=== PATIENT | female | born 1970 | race Caucasian/White ===

== ENCOUNTER 2016-05-27 20:45 | Emergency (ER) | payer BC, OTHER ==
[2016-05-27] MEDS ORDERED: Acetaminophen/HYDROcodone 325-10 MG Tab PO ONE (21:05)
[2016-05-27] MEDS ORDERED: Lidocaine 2% with EPINEPHrine 1:200,000 20 ML SDV ONE (21:31)
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
[2016-05-27] MEDS ORDERED: Bacitracin/Neomycin/Polymyxin B Oint 0.9 GM U/D Packet ONE (22:14)
[2016-05-27] MEDS ORDERED: Diphtheria,Pertussis(Acell),Tetanus Vaccine 0.5 ML SDV IM ONE (22:49)
[2016-05-27 23:27] VITALS: BP 140/85
== END 2016-05-27 23:40 | disposition home or self-care (01) ==
LOC: KA.ED 20:45
DX: S81.011A Laceration without foreign body, right knee, initial encounter (principal); V19.9XXA Pedal cyclist (driver) (passenger) injured in unspecified traffic accident, initial encounter
CPT/HCPCS: 12002; 73560; 99283; A9270

== ENCOUNTER 2017-04-02 10:40 | Inpatient (IN) | payer BC ==
[2017-04-02] MEDS: Ondansetron 4 MG/2 ML SDV IVPUSH PRN (11:21)
[2017-04-02] MEDS: Morphine 2 MG/ML Syringe IV PRN ×3 (11:23→20:26)
[2017-04-02] MEDS ORDERED: cefTRIAXone 1 GM in Sodium Chloride 0.9% 50 ML IV SCH (11:30)
[2017-04-02] MEDS ORDERED: Iopamidol 612 MG/ML 75 ML Bottle IV ONE (12:54)
[2017-04-02] MEDS ORDERED: Sodium Chloride 0.9% 50 ML SDV FLUSH SCH (13:00)
[2017-04-02] MEDS: cefTRIAXone 1 GM Vial IVPUSH SCH (13:28)
[2017-04-02] MEDS: Dextrose 5%-0.45% NaCl 1,000 ML IV SCH ×2 (13:29→22:21)
[2017-04-02] MEDS ORDERED: Albuterol HFA 18 Gm Inhaler INH PRN (16:42)
[2017-04-03 08:00] LABS: CHLORIDE,CL 105 mmol/L (98-115); SODIUM,NA 140 mmol/L (136-145)
[2017-04-03] MEDS: Dextrose 5%-0.45% NaCl 1,000 ML IV SCH (08:30)
[2017-04-03] MEDS: Morphine 2 MG/ML Syringe IV PRN ×3 (10:22→18:01)
[2017-04-03] MEDS: cefTRIAXone 1 GM Vial IVPUSH SCH (10:32)
--- NOTE | 2017-04-03 11:01 | PN ---
04/03/2017 PATIENT NAME: LASHAY STRANGE CHIEF COMPLAINT: Feels overall better. Pain is subsiding in her right upper abdominal quadrant, although I do not have the documentation from her admission. HISTORY: The patient is 46-year-old who started having some upper right-sided abdominal pain in the evening after she had eaten. Abdominal CT did demonstrate a stone in the neck of the gallbladder consistent with cholecystolithiasis. She also had white count elevation with neutrophilia. She was admitted for IV fluids, pain control, and bowel rest. LABORATORY DATA: Labs today, white count much improved 8.7. Neutrophilia is now improved to 66.3. Sodium, potassium, BUN, and creatinine normal. Glucose 163. Amylase and lipase at [facility] were normal. Calcium, AST, ALT, and alkaline phosphatase normal. Albumin 2.94. PHYSICAL EXAMINATION: VITAL SIGNS: Temperature 98.6, T-max while in the hospital 98.9, blood pressure 131/76, heart rate 70, respiratory rate 18, O2 saturation 97% on room air. Intake and output, she has fluids running saline at 100 mL an hour. Total intake 1651, output 1200. Positive balance of 451. GENERAL: The patient is alert and oriented; much less pain, if any. HEENT: No sore throat. HEART: No chest pain. CARDIOVASCULAR: Regular rate and rhythm. ABDOMEN: Negative Hay sign. Bowel tones decreased. EXTREMITIES: No pitting edema. No tenderness to the right upper quadrant. IMPRESSION AND PLAN: 1. Acute cholelithiasis, stone in the neck of gallbladder, uncomplicated. Negative liver enzymes. No signs and symptoms of cholangitis or pancreatitis. Continue with Rocephin. May advance diet, is eating with clears right now. Ice chips. 2. Dehydration. Advance fluids to 125 mL/h. 3. Fatty liver disease. 4. Obesity, contributory. OVERALL PLAN: Continue IV antibiotics. Increase her fluids. She can have ice chips now. May advance to clear liquids this evening. Pain control measures. Discussion about followup and possible gallbladder removal. The patient will remain in acute care status today. /[id number]/MODL
[2017-04-03] MEDS ORDERED: Sodium Chloride 0.9% 1,000 ML IV SCH (11:45)
[2017-04-03] MEDS ORDERED: Dextrose 5%-0.45% NaCl 1,000 ML IV SCH (11:45)
[2017-04-03] MEDS: Ondansetron 4 MG/2 ML SDV IVPUSH PRN ×2 (13:32→17:58)
[2017-04-03] MEDS ORDERED: Pantoprazole 40 MG in Sodium Chloride 0.9% 100 ML IV ONE (13:54)
[2017-04-03] MEDS ORDERED: Morphine 4 MG/ML Syringe IVPUSH ONE (13:55)
[2017-04-03] MEDS ORDERED: Pantoprazole 40 MG Vial ONE (14:00)
[2017-04-03] MEDS ORDERED: Pantoprazole 40 MG Vial IVPUSH ONE (14:02)
[2017-04-03] MEDS: Sodium Chloride 0.9% 1,000 ML IV SCH (17:59)
[2017-04-03] MEDS: Pregabalin 25 MG Cap PO SCH (21:02)
[2017-04-04] MEDS: Sodium Chloride 0.9% 1,000 ML IV SCH (04:17)
[2017-04-04] MEDS ORDERED: Dextrose 5%-0.45% NaCl 1,000 ML IV SCH (08:45)
[2017-04-04] MEDS: Ondansetron 4 MG/2 ML SDV IVPUSH PRN ×2 (08:53→18:07)
[2017-04-04] MEDS: Ketorolac 30 MG/ML SDV IVPUSH SCH ×3 (08:55→20:41)
[2017-04-04] MEDS: Pregabalin 25 MG Cap PO SCH ×2 (08:57→20:40)
[2017-04-04 09:33] LABS: CHLORIDE,CL 107 mmol/L (98-115); SODIUM,NA 141 mmol/L (136-145)
[2017-04-04] MEDS: cefTRIAXone 1 GM Vial IVPUSH SCH (11:17)
--- NOTE | 2017-04-04 12:40 | PN ---
04/04/2017 PATIENT NAME: LASHAY STRANGE Update, the patient is doing well now. Yesterday afternoon, she did receive a meal tray at noon despite orders contrary to that, and she started having some severe abdominal pain. Morphine was increased. Zofran was given. Update this morning, she does feel although sore in her right upper quadrant, she has had no more abdominal pain. Fluids were given yesterday due to dehydration. However, she is now improving and becoming much more euvolemic. Lyrica was added for pain control measures. HISTORY: This 46-year-old obese female was admitted due to right upper abdominal pain in the evening after she had eaten. Abdominal CT demonstrated a stone in the neck of the gallbladder consistent with cholecystolithiasis without any acute cholecystitis. She did have an elevated white count with neutrophilia, which is now normal. She was admitted for IV fluids, pain control, and bowel rest. Attempts to advance diet so far have been precarious. We will see how she does. PHYSICAL EXAMINATION: VITAL SIGNS: Her temperature max past 24 hours was 99.4, right now she is 98.5; blood pressure 137/90; O2 sats 99% on room air; heart rate 73. GENERAL: The patient is alert and oriented. No pain at this time other than some mild soreness of right upper quadrant. Bowel tones are low. CV: Regular rate and rhythm. LUNGS: Clear to auscultation. LABORATORY DATA: White count shifting back to normal. White count now 8.7. Neutrophilia now normal at 66.3. Sodium, potassium, BUN, and creatinine are normal. Calcium, AST, ALT, alkaline phosphatase are all normal. She did have a normal lipase and amylase in the clinic. Microbiology reports none. IMPRESSION/PLAN: 1. Acute cholelithiasis, stone in the neck of the gallbladder, appears uncomplicated. Negative liver enzymes. No signs of complications. At this time, no cholangitis or pancreatitis. We will continue with Rocephin. We will attempt to advance diet today. 2. Dehydration becoming more euvolemic. Change fluids to D5 and half-normal saline, reduced rate. 3. Fatty liver disease. 4. Obesity, contributory. Long discussion with the patient and patient's family members. The patient's family members are desiring sooner gallbladder removal if indicated. We will discuss this more with surgical team. At this time, add ketorolac, try to advance diet. Have her move around in the halls today. Monitor for any ongoing pain, likely could be discharged tomorrow. Continue with low-fat diet on outpatient therapy. /[id number]/MODL
[2017-04-05] MEDS ORDERED: Ondansetron 4 MG Tab.DIS PO PRN (00:29)
[2017-04-05] MEDS ORDERED: Ketorolac 10 MG Tab PO SCH (04:00)
[2017-04-05 05:58] VITALS: BP 115/77
[2017-04-05] MEDS: Morphine 2 MG/ML Syringe IM SCH ×2 (06:01→06:08)
[2017-04-05] MEDS ORDERED: Morphine 2 MG/ML Syringe IM PRN (06:13)
[2017-04-05] MEDS: Pregabalin 25 MG Cap PO SCH (09:43)
--- NOTE | 2017-04-05 11:08 | DISCH ---
The patient was admitted in inpatient on 04/02, discharged from inpatient today. FINAL DIAGNOSES: 1. Cholecystolithiasis with stone in neck of gallbladder. 2. Fatty liver disease. 3. Obesity. BRIEF HISTORY: A 46-year-old obese female, admitted due to right upper abdominal pain, quite severe in the evening after she had eaten. An abdominal CT demonstrated a stone in the neck of the gallbladder consistent with cholecystolithiasis without any acute cholecystitis. She did have an elevated white count around 16, 17,000 with neutrophilia, which is now normal. She was admitted basically for IV fluids, bowel rest, pain control measures. COMPLICATIONS: No complications in the hospital other than having to slow down on advancing diet. HOSPITAL COURSE: Went fairly well. She never became hemodynamically unstable. Temperature max 98.6. She was significantly dehydrated on admission. Fluid bolus and challenge were given. She did have a mild headache; however, she quickly became euvolemic. Her headache went away. She was given Rocephin 1 g every 24 hours. Attempts to advance her diet were slightly unsuccessful. The patient did receive an early clear liquid diet and the patient did have some more nausea and pain. She became n.p.o. after that. Subsequent measures to advance diet up to full liquids were very good. She was pain free within 24 hours upon discharge. She was ambulatory. She felt much better. She had no fever. Electrolytes were all monitored. They were all within normal limits. AST and ALT, normal. She did have a normal amylase and lipase at the [facility]. White count 9.6 on discharge; however, still had some residual neutrophilia. She will be placed on antibiotics upon discharge. Pain control measures with Toradol, Lyrica along with morphine were successful. PHYSICAL EXAM ON DISCHARGE: ABDOMEN: Negative Hay sign. Good bowel tones. LUNGS: Clear to auscultation. CV: Regular rate and rhythm. VITAL SIGNS: Blood pressure 115/77, temperature 97.7, heart rate 70, O2 sats 97% on room air. INTEGUMENTARY: Does have some bruising for previous IV sticks and needle. Venipuncture draws on her right arm. MEDICATIONS: Amoxicillin 500 mg p.o. b.i.d. x7 days, ketorolac 10 mg p.o. q.6 hours p.r.n. limited dosing, Lyrica 50 mg p.o. b.i.d. #30, Dilaudid 2 mg p.o. q.4 hours p.r.n. #20 for severe pain. The patient can continue on all other home medications. DISPOSITION: The patient will be discharged from the hospital. She will follow up with surgeon, Dr. Annie Townsend this afternoon. She is to be on a strict no fat diet, handout was given to her. Report any increase in pain, fever, nausea, or vomiting. Long discussion to patient and the patient's mother regarding outcomes and possible surgical removal in the future. This will be determined by a surgical consultation today. /[id number]/MODL
[2017-04-05] MEDS ORDERED: cefTRIAXone 1 GM Vial IM ONE (11:30)
== END 2017-04-05 11:17 | disposition home or self-care (01) ==
LOC: KA.MS 10:40
PROVIDERS: ADMIT Physician Assistant Medical; ATTEND Family Medicine
DX: K80.20 Calculus of gallbladder without cholecystitis without obstruction (principal); K76.0 Fatty (change of) liver, not elsewhere classified; E66.9 Obesity, unspecified; Z68.41 Body mass index [BMI] 40.0-44.9, adult; E86.0 Dehydration; Z79.899 Other long term (current) drug therapy; F41.8 Other specified anxiety disorders; Z91.040 Latex allergy status; Z88.8 Allergy status to other drugs, medicaments and biological substances
CPT/HCPCS: 36415; 74177; 80048; 80053; 85025; A9270-GY; C9113; J0696; J1885; J2270; J2405; J7030; J7042; Q9967

== ENCOUNTER 2017-04-09 13:57 | Inpatient (IN) | payer BC ==
[2017-04-09] MEDS ORDERED: Sodium Chloride 0.9% 5 ML Syringe FLUSH PRN (14:12)
[2017-04-09] MEDS: Sodium Chloride 0.9% 1,000 ML IV SCH (14:35)
[2017-04-09] MEDS: Ketorolac 30 MG/ML SDV IVPUSH PRN (15:24)
[2017-04-09] MEDS: Ondansetron 4 MG/2 ML SDV IVPUSH PRN (15:26)
[2017-04-09] MEDS ORDERED: Albuterol HFA 18 Gm Inhaler INH PRN (20:05)
[2017-04-09] MEDS ORDERED: cefTRIAXone 1 GM Vial IVPUSH ONE (20:40)
[2017-04-09] MEDS ORDERED: Amoxicillin 875 MG Tab PO SCH (21:00)
[2017-04-09] MEDS ORDERED: Pregabalin 25 MG Cap PO SCH (21:00)
[2017-04-09] MEDS: Morphine 2 MG/ML Syringe IVPUSH PRN (21:49)
[2017-04-10] MEDS: Ketorolac 30 MG/ML SDV IVPUSH PRN ×4 (00:56→21:37)
[2017-04-10] MEDS: Sodium Chloride 0.9% 1,000 ML IV SCH (01:50)
[2017-04-10] MEDS: Morphine 2 MG/ML Syringe IVPUSH PRN ×3 (02:34→18:15)
[2017-04-10] MEDS: Ondansetron 4 MG/2 ML SDV IVPUSH PRN ×2 (02:34→14:17)
[2017-04-10] MEDS ORDERED: Phenol 1.4% Oral Spray 177 ML Bottle ONE (04:57)
[2017-04-10] MEDS ORDERED: Phenol 1.4% Oral Spray 177 ML Bottle MUCMEM PRN (05:42)
[2017-04-10] MEDS ORDERED: Sodium Chloride 0.9% 1,000 ML IV ONE (09:11)
[2017-04-10] MEDS ORDERED: Lactated Ringers 1,000 ML IV SCH (09:30)
[2017-04-10] MEDS ORDERED: Propofol 200 MG/20 ML SDV ONE (10:35)
[2017-04-10] MEDS ORDERED: fentaNYL 250 MCG/5 ML SDV ONE (10:35)
[2017-04-10] MEDS ORDERED: Midazolam 1 MG/ML 2 ML SDV ONE (10:35)
[2017-04-10] MEDS ORDERED: ceFAZolin 1 GM Vial ONE ×3 (10:35→12:10)
[2017-04-10] MEDS ORDERED: Dexamethasone 4 MG/ML SDV ONE (10:36)
[2017-04-10 10:46] LABS: CHLORIDE,CL 108 mmol/L (98-115); SODIUM,NA 142 mmol/L (136-145)
[2017-04-10] MEDS ORDERED: Lidocaine 1% with EPINEPHrine 1:100,000 20 ML MDV ONE ×2 (11:05→13:40)
[2017-04-10] MEDS ORDERED: Lactated Ringers 1,000 ML ONE ×2 (11:08→11:42)
[2017-04-10] MEDS ORDERED: Propofol 200 MG/20 ML SDV IV ONE (11:20)
[2017-04-10] MEDS ORDERED: Lactated Ringers 1,000 ML IV ONE (11:20)
[2017-04-10] MEDS ORDERED: Neostigmine Methylsulfate 10 MG/10 ML MDV IV ONE (11:20)
[2017-04-10] MEDS ORDERED: ceFAZolin 1 GM Vial IV ONE (11:20)
[2017-04-10] MEDS ORDERED: Ondansetron 4 MG/2 ML SDV IV ONE (11:20)
[2017-04-10] MEDS ORDERED: Rocuronium 50 MG/5 ML Vial IV ONE (11:20)
[2017-04-10] MEDS ORDERED: Midazolam 1 MG/ML 2 ML SDV IV ONE (11:20)
[2017-04-10] MEDS ORDERED: Dexamethasone 4 MG/ML SDV IV ONE (11:20)
[2017-04-10] MEDS ORDERED: Glycopyrrolate 0.2 MG/ML 5 ML MDV IV ONE (11:20)
[2017-04-10] MEDS ORDERED: fentaNYL 250 MCG/5 ML SDV IV ONE (11:20)
[2017-04-10] MEDS ORDERED: Succinylcholine 200 MG/10 ML MDV IV ONE (11:20)
[2017-04-10] MEDS ORDERED: Sodium Chloride 0.9% 20 ML SDV ONE (12:14)
[2017-04-10] MEDS ORDERED: Lidocaine 1% with EPINEPHrine 1:100,000 20 ML MDV INFILT ONE ×2 (12:15)
[2017-04-10] MEDS ORDERED: EPINEPHrine 1:10,000 1 MG/10 ML Syringe ONE (12:19)
[2017-04-10] MEDS ORDERED: Morphine 4 MG/ML Syringe IVPUSH PRN (13:46)
[2017-04-10] MEDS ORDERED: Ondansetron 4 MG/2 ML SDV IVPUSH PRN (13:47)
[2017-04-10] MEDS ORDERED: Morphine 2 MG/ML Syringe IVPUSH PRN (13:47)
[2017-04-10] MEDS ORDERED: fentaNYL 100 MCG/2 ML SDV IVPUSH PRN (13:47)
--- NOTE | 2017-04-10 14:04 | PCM.PRNOTE ---
- Free Text/Narrative Note: INFORMED CONSENT: This patient is here today because of chronic cholecystitis and cholelithiasis. The operative procedure is laparoscopic cholecystectomy. The operative procedure and risks were discussed including all possible complications including infection, pain, bleeding, bile duct injury, internal organ injury, conversion to open procedure, reoperation, PE, . Anesthetic complications were handled by [employer]. The patient understands well and wishes to proceed. OPERATION PERFORMED: Laparoscopic cholecystectomy. PROCEDURE: The patient was kept in the supine position and a satisfactory general anesthetic was administered via endotracheal tube. The abdomen was thoroughly prepped and draped in the usual fashion. The supraumbilical fold was infiltrated with 1 mL of Marcaine 0.5% and a curvilinear incision was made. The incision was deepened through the subcutaneous tissue until we came down upon the fascial layer. We then held the fascial layer with two Jose clamps and then introduced a Verre's needle directly into the abdominal cavity. The position of the needle was ascertained by the aspiration of a small quantity of air, free flow of saline, negative aspiration of blood. We then instilled CO2 gas into the abdominal cavity and developed an abdominal pressure of approximately 15 mm/Hg. At this point we removed the Verre's needle and reintroduced it over a sheath. This was followed by a 5/12.5 trocar and a camera. Inspection revealed a chronically inflamed gallbladder with some omental adhesions. The omental pad was quite thick. The rest of the abdominal contents were normal to visualization. Two 5 mm trocars were placed in the right hypochondriac region, one in the right midclavicular and the second on the anterior clavicle line and a third 11.5 trocar was inserted in the subxiphoid position under direct vision. The patient was then kept in the reverse Trendelenburg position with a slight tilt to the left side. The two ratchets were placed one on the fundus and one at the neck of the gallbladder. Extensive omental tissue was seen to be adherent to the gallbladder. Carefully the omentum was dissected from the gallbladder using hook and cautery. Dissection was begun at the neck of the gallbladder and the fat in this area was quite immense. We carefully dissected out the cystic artery and cystic duct separately and encircled both structures at approximately 1 to 1-1/2 cm. We then dissected the gallbladder from the cystic plate to about one third [address] the way on the liver. The fat in the hepatic biliary triangle was cleared. At the end of this dissection, there were only 2 structures going to the bladder. One was the cystic duct and other one was the cystic artery. We ligated each structure separately using endo clips. When ligating the cystic duct we made sure not to encroach upon the common duct in any way. We then used a hook cautery and gently dissected the gallbladder off its bed. The base gallbladder fossa was gently cauterized for additional hemostasis. The gallbladder was retrieved through the umbilical port. The melody hepatis was thoroughly irrigated with normal saline, most of which was aspirated out. The abdomen was then slowly deflated and prior to removal of the last trocar we completely deflated the abdomen. The trocar sites were washed with Betadine solution and the fascial layer was closed with 0 Polysorb and the skin was closed using 4.0 Polysorb in a subcuticular fashion. We then instilled approximately 20 mL of Marcaine 0.5% with epinephrine between the four sites. Sterile pressure dressings were applied. The patient tolerated the procedure well. There were no operative complications. Sponge, needle, and instrument count were correct. Blood loss was negligeable.
[2017-04-10] MEDS ORDERED: Morphine 10 MG/ML Syringe ONE (14:27)
[2017-04-10] MEDS ORDERED: LORazepam 2 MG/ML SDV IVPUSH PRN (15:37)
[2017-04-10] MEDS: Lactated Ringers 1,000 ML IV SCH (17:08)
[2017-04-10] MEDS: Pregabalin 25 MG Cap PO SCH (20:09)
[2017-04-11] MEDS: Morphine 2 MG/ML Syringe IVPUSH PRN (02:26)
[2017-04-11] MEDS: Lactated Ringers 1,000 ML IV SCH (02:29)
[2017-04-11] MEDS: Ketorolac 30 MG/ML SDV IVPUSH PRN ×3 (03:07→15:26)
[2017-04-11] MEDS: Pregabalin 25 MG Cap PO SCH (09:07)
--- NOTE | 2017-04-11 09:15 | PN ---
04/10/2017 PATIENT NAME: LASHAY STRANGE CHIEF COMPLAINT: Overall does feel better. However, she did have a nasogastric tube last night that she did complain of that was difficult for them to put it in. It was painful. However, she did receive morphine and it did alleviate the pain somewhat. She had very little output throughout the night on nasogastric tube. She did have some abdominal distention, which is much improved. BRIEF HISTORY: This 46-year-old female with acute choledocholithiasis. She was recently admitted and then subsequently discharged from the hospital due to choledocholithiasis. She had seen a surgeon on followup and was scheduled for surgery in an approximately 3-4 weeks. However, early upon discharge she began to have some increased abdominal pain despite low fat or no fat diet and with some abdominal distention and so she was subsequently readmitted to the hospital and placed on the surgery schedule for possible laparoscopic cholecystectomy. LABS: She did have minimal elevation of her LFTs at the [facility]. Those are likely to be repeated. She had negative HCG. White count was negative. PHYSICAL EXAMINATION: VITAL SIGNS: Temperature 99.1, O2 sats 96% on room air, blood pressure 120/74. ABDOMEN: She does have good bowel tones. Abdomen is much softer now. NG tube is placed. ECG negative. The patient has been n.p.o. since admission for pending possible surgery. IMPRESSION AND PLAN: choledocholithiasis. The patient is prepped to meet with surgeon for possible laparoscopic cholecystectomy at [facility]. Keep ongoing nasal gastric tube. The patient is n.p.o. ECG is negative. Ceftriaxone 1 g IV push was administered last night. The patient had been on amoxicillin b.i.d. prior to this. Currently has normal saline running at 90 mL an hour. Morphine, Zofran p.r.n. Hepatitis panel will be ordered this morning along with comprehensive metabolic panel. /[id number]/MODL MTDD
[2017-04-11] MEDS ORDERED: Bisacodyl 10 MG Supp RECTAL SCH (11:30)
[2017-04-11 15:22] VITALS: BP 131/75
--- NOTE | 2017-04-18 11:17 | PCM.DCSUM1 ---
Discharge Summary - Discharge Data Discharge Date: 04/11/17 Discharge Disposition: Home, Self-Care 01 Condition: Good - Patient Summary/Data Complications: No complications. Surgery went well patient progressed well. Hospital Course: Issues hospital course went as expected. She was ambulatory after surgery, she tolerated a slowly advancing diet. Pain was controlled with medication. Dressings were clean dry and intact, abdominal distention subsided. Discontinued antibiotics. - Patient Instructions Diet, Other: See detailed instructions Fluid Restriction: 2000 mL Activity: As Tolerated, Cough & Deep Breathe, No Strenuous Activities, Rest and Relax Today Driving: Do Not Drive Showering/Bathing: May Shower Wound/Incision Care: Keep Operative Site/Wound Site Clean and Dry Notify Provider of: Fever, Increased Pain, Nausea and/or Vomiting Other/Special Instructions: Report yellowing of skin or eyes. Dietary: You can slowly start advancing your diet. Add foods back into your diet very slowly , but the first few days stick with clear liquids, broth, and gelatin. After that gradually add more solid foods back into your diet. Avoid high fat fried foods along with gas causing foods, avoid foods with strong odors, eat small but frequent meals. Best to stick with a low-fat diet overall. Some high fat foods includes polish fries, milk, pizza, butter, creams, chocolates, below-knee , sausage, ground beef, ice cream and cheese. Just read your labels anything more than 30% of your daily intake should not be from fat foods. Be very careful regarding gas-containing foods should be very slowly incorporated into your diet over the next few weeks including whole-grain bread, seeds, cauliflower and cabbage and cereals. - Discharge Plan Prescriptions/Med Rec: Hydrocodone/Acetaminophen [Hydrocodon-Acetaminophen 5-325] 1 - 2 each PO Q6HR PRN #30 tablet PRN Reason: moderate pain Acetaminophen [Tylenol] 650 mg PO Q4H PRN #60 cup PRN Reason: Pain Sennosides/Docusate Sodium [Senna S Tablet] 1 each PO DAILY PRN #10 tablet PRN Reason: Constipation Home Medications: Home Meds Albuterol [Ventolin HFA] 1 puff INH Q4H PRN 04/02/17 [History] Escitalopram [Lexapro] 10 mg PO DAILY 04/02/17 [History] Fexofenadine/Pseudoephedrine [Kizzy-D 24 Hour Tablet] 1 tab PO ASDIRECTED [History] Ibuprofen 800 mg PO Q4H PRN 04/02/17 [History] Acetaminophen [Tylenol] 650 mg PO Q4H PRN #60 cup 04/11/17 [Rx] Hydrocodone/Acetaminophen [Hydrocodon-Acetaminophen 5-325] 1 - 2 each PO Q6HR PRN #30 tablet 04/11/17 [Rx] Sennosides/Docusate Sodium [Senna S Tablet] 1 each PO DAILY PRN #10 tablet 04/11 [Rx] Referrals: Rodrigo Palma, [employer]AD [Nurse Practitioner] - (Midweek next week) - Discharge Summary/Plan Comment DC Time >30 min.: No Discharge Summary/Plan Comment: Final Diagnosis Laparoscopic cholecystectomy - Patient Data Vitals - Most Recent: Last Vital Signs Temp 97.9 F 04/11/17 15:00 Pulse 87 04/11/17 15:00 Resp 18 04/11/17 15:00 BP 131/75 04/11/17 15:00 Pulse Ox 97 04/11/17 15:00 Weight - Most Recent: 232 lb 8 oz Med Orders - Current: Current Medications Discontinued Medications Albuterol (Ventolin Hfa) 0 gm INH Q4H PRN PRN Reason: Cough Amoxicillin (Amoxil) 875 mg PO BID [facility] Stop: 04/09/17 21:01 Bisacodyl (Dulcolax) 10 mg RECTAL ONETIME [facility] Last Admin: 04/11/17 11:45 Dose: 10 mg Cefazolin Sodium (Ancef) Confirm Administered Dose 1 gm .ROUTE .STK-MED ONE Stop: 04/10/17 10:36 Last Admin: 04/10/17 15:44 Dose: Not Given Cefazolin Sodium (Ancef) Confirm Administered Dose 1 gm .ROUTE .STK-MED ONE Stop: 04/10/17 11:08 Last Admin: 04/10/17 15:43 Dose: Not Given Cefazolin Sodium (Ancef) 1 gm .XX .STK-MED ONE Stop: 04/10/17 12:11 Last Admin: 04/10/17 12:10 Dose: 1 gm Cefazolin Sodium (Ancef) 1 gm IV .STK-MED ONE Stop: 04/10/17 11:21 Ceftriaxone Sodium (Rocephin) 1 gm IVPUSH ONETIME ONE Stop: 04/09/17 20:41 Last Admin: 04/09/17 20:59 Dose: 1 gm Dexamethasone (Dexamethasone) Confirm Administered Dose 4 mg .ROUTE .STK-MED ONE Stop: 04/10/17 10:37 Last Admin: 04/10/17 15:43 Dose: Not Given Dexamethasone (Dexamethasone) 4 mg IV .STK-MED ONE Stop: 04/10/17 11:21 Epinephrine HCl (Epinephrine 1:10,000) Confirm Administered Dose 1 mg .ROUTE .STK-MED ONE Stop: 04/10/17 12:20 Last Admin: 04/10/17 15:43 Dose: Not Given Fentanyl (Sublimaze) Confirm Administered Dose 250 mcg .ROUTE .STK-MED ONE Stop: 04/10/17 10:36 Last Admin: 04/10/17 15:43 Dose: Not Given Fentanyl (Sublimaze) 50 mcg IVPUSH Q5M PRN PRN Reason: Pain Stop: 04/10/17 15:00 Fentanyl (Sublimaze) 250 mcg IV .STK-MED ONE Stop: 04/10/17 11:21 Glycopyrrolate (Robinul) 0.6 mg IV .STK-MED ONE Stop: 04/10/17 11:21 Sodium Chloride (Normal Saline) 1,000 mls [facility] 90 [facility] Admin: 04/10/17 01:50 Dose: 90 mls/hr Lactated Ringer's (Ringers, Lactated) 1,000 mls @ 50 mls/hr IV ASDIRECTED [facility] Last Admin: 04/10/17 10:50 Dose: 50 mls/hr Sodium Chloride (Normal Saline) 1,000 mls @ 999 mls/hr IV .BOLUS ONE Stop: 04/10/17 10:11 Last Admin: 04/10/17 09:20 Dose: 999 mls/hr Lactated Ringer's (Ringers, Lactated) Confirm Administered Dose 1,000 mls @ as directed .ROUTE .STK-MED ONE Stop: 04/10/17 11:09 Last Admin: 04/10/17 15:43 Dose: Not Given Lactated Ringer's (Ringers, Lactated) Confirm Administered Dose 1,000 mls @ as directed .ROUTE .STK-MED ONE Stop: 04/10/17 11:43 Last Admin: 04/10/17 15:43 Dose: Not Given Lactated Ringer's (Ringers, Lactated) 1,000 mls @ 100 mls/hr IV ASDIRECTED [facility] Last Admin: 04/11/17 02:29 Dose: 100 mls/hr Lactated Ringer's (Ringers, Lactated) 1,000 mls @ as directed IV .STK-MED ONE Stop: 04/10/17 11:21 Ketorolac Tromethamine (Toradol) 30 mg IVPUSH Q6H PRN PRN Reason: Pain Stop: 04/14/17 15:06 Last Admin: 04/11/17 15:26 Dose: 30 mg Lactated Ringer's (Ringers, Lactated) 1,000 ml IRR .STK-MED ONE Stop: 04/10/17 12:10 Last Admin: 04/10/17 12:09 Dose: 1,000 ml Lidocaine/Epinephrine (Xylocaine 1% With Epinephrine 1:100,000) Confirm Administered Dose 20 ml .ROUTE .STK-MED ONE Stop: 04/10/17 11:06 Last Admin: 04/10/17 15:43 Dose: Not Given Lidocaine/Epinephrine (Xylocaine 1% With Epinephrine 1:100,000) Confirm Administered Dose 20 ml .ROUTE .STK-MED ONE Stop: 04/10/17 13:41 Last Admin: 04/10/17 15:43 Dose: Not Given Lidocaine/Epinephrine (Xylocaine 1% With Epinephrine 1:100,000) 40 ml INFILT .STK-MED ONE Stop: 04/10/17 12:16 Last Admin: 04/10/17 12:15 Dose: 40 ml Lorazepam (Ativan) 0.5 mg IVPUSH Q3H PRN PRN Reason: Anxiety Midazolam HCl (Versed 1 Mg/Ml) Confirm Administered Dose 2 mg .ROUTE .STK-MED ONE Stop: 04/10/17 10:36 Last Admin: 04/10/17 15:43 Dose: Not Given Midazolam HCl (Versed 1 Mg/Ml) 2 mg IV .STK-MED ONE Stop: 04/10/17 11:21 Morphine Sulfate (Morphine) 2 - 4 mg IVPUSH Q4H PRN PRN Reason: moderate pain Last Admin: 04/11/17 02:26 Dose: 4 mg Morphine Sulfate (Morphine) 4 mg IVPUSH ONETIME PRN PRN Reason: Pain Stop: 04/10/17 15:00 Morphine Sulfate (Morphine) 0 mg IVPUSH Q5M PRN PRN Reason: Pain Stop: 04/10/17 15:00 Morphine Sulfate (Morphine) Confirm Administered Dose 10 mg .ROUTE .STK-MED ONE Stop: 04/10/17 14:28 Last Admin: 04/10/17 15:43 Dose: Not Given Neostigmine Methylsulfate (Neostigmine Methylsulfate) 3 mg IV .STK-MED ONE Stop: 04/10/17 11:21 Ondansetron HCl (Zofran) 4 mg IVPUSH Q4H PRN PRN Reason: Nausea/Vomiting Last Admin: 04/10/17 14:17 Dose: 4 mg Ondansetron HCl (Zofran) 4 mg IVPUSH ONETIME PRN PRN Reason: Nausea Stop: 04/10/17 15:00 Ondansetron HCl (Zofran) 4 mg IV .STK-MED ONE Stop: 04/10/17 11:21 Phenol/Menthol (Chloraseptic Throat [place]) Confirm Administered Dose 177 ml .ROUTE .STK-MED ONE Stop: 04/10/17 04:58 Last Admin: 04/10/17 06:04 Dose: Not Given Phenol/Menthol (Chloraseptic Throat [place]) 1 ml MUCMEM Q2H PRN PRN Reason: Throat pain Last Admin: 04/10/17 05:00 Dose: 1 spray Pregabalin (Lyrica) 50 mg PO BID [facility] Stop: 04/09/17 21:01 Last Admin: 04/09/17 20:27 Dose: 50 mg Pregabalin (Lyrica) 50 mg PO BID [facility] Last Admin: 04/11/17 09:07 Dose: 50 mg Propofol (Diprivan 20 Ml) Confirm Administered Dose 200 mg .ROUTE .STK-MED ONE Stop: 04/10/17 10:36 Last Admin: 04/10/17 15:43 Dose: Not Given Propofol (Diprivan 20 Ml) 200 mg IV .STK-MED ONE Stop: 04/10/17 11:21 Rocuronium [place] (Zemuron) 30 mg IV .STK-MED ONE Stop: 04/10/17 11:21 Sodium Chloride (Syrex Flush) 5 ml FLUSH Q8HR PRN PRN Reason: Keep Vein Open Sodium Chloride (Normal Saline) 10 ml .XX .STK-MED ONE Stop: 04/10/17 12:15 Last Admin: 04/10/17 12:14 Dose: 10 ml Succinylcholine Chloride (Quelicin) 120 mg IV .STK-MED ONE Stop: 04/10/17 11:21 *Q Meaningful Use (DIS) - VTE *Q VTE Criteria *Q: - Stroke *Q Stroke Criteria *Q: - AMI *Q AMI Criteria *Q:
== END 2017-04-11 16:20 | disposition home or self-care (01) | DRG 263 ==
LOC: KA.MS 13:57
PROVIDERS: ADMIT Nurse Practitioner Family; ATTEND Family Medicine
PROC: 0FT44ZZ Resection of Gallbladder, Percutaneous Endoscopic Approach (ICD-10-PCS; principal; 2017-04-09)
DX: K80.10 Calculus of gallbladder with chronic cholecystitis without obstruction (principal); E66.01 Morbid (severe) obesity due to excess calories; F32.9 Major depressive disorder, single episode, unspecified; F41.9 Anxiety disorder, unspecified; Z68.41 Body mass index [BMI] 40.0-44.9, adult; Z87.891 Personal history of nicotine dependence; Z79.899 Other long term (current) drug therapy
CPT/HCPCS: 36415; 80053; 80074; 81025; 88305; A9270-GY; J0330; J0690; J0696; J1100; J1885; J2250; J2270; J2405; J2704; J2710; J3010; J3490; J7030; J7120

== ENCOUNTER 2020-10-05 12:32 | Emergency (ER) | payer BC ==
--- NOTE | 2020-10-05 12:39 | EDM.PDOC ---
ED HPI GENERAL MEDICAL PROBLEM - General Chief Complaint: Allergic Reaction Stated Complaint: COVID SHOT REACTION Time Seen by Provider: 10/05/20 12:39 Source of Information: Reports: Patient History Limitations: Reports: No Limitations - History of Present Illness INITIAL COMMENTS - FREE TEXT/NARRATIVE: Roxi, 50-year-old female, presents to the emergency department accompanied by her with what she claims an allergic reaction to her COVID-19 vaccination. She states she received the first injection of Pfizer COVID-19 mRNA vaccination yesterday in [place]. She states to me that she started feeling ill with general malaise within 5 minutes after receiving the immunization. She was discharged home and has progressively worsened with generalized body aches low-grade temp and other post immunization type complaints. She denies having COVID-19 that she was officially tested or diagnosed for at any time. Onset: Today, Sudden Onset Date: 10/04/20 Duration: Hour(s):, Getting Worse Location: Reports: Generalized Severity: Moderate Improves with: Reports: None Generalized Pain Score (Numeric/FACES): 2 - Related Data Allergies Allergy/AdvReac Type Severity Reaction Status Date / Time diphenhydramine Allergy Hives Verified 10/05/20 13:18 [From Benadryl] latex Allergy Blisters Verified 10/05/20 13:18 lavender (Lavandula Allergy Blisters Verified 10/05/20 13:18 angustifolia) [id number] Reductase Allergy Cannot Verified 10/05/20 13:18 Inhibitor Remember sulfamethoxazole Allergy Abdominal Verified 10/05/20 13:18 [From Bactrim] Pain Home Meds: Home Meds Escitalopram [Lexapro] 10 mg PO DAILY 04/02/17 [History] Acetaminophen [Tylenol] 650 mg PO Q4H PRN #60 cup 04/11/17 [Rx] Cetirizine [ZyrTEC] 10 mg PO DAILY 05/04/20 [History] Dapagliflozin Propanediol [Farxiga] 5 mg PO DAILY 05/04/20 [History] Fluticasone Propionate [Flonase Allergy Relief] 1 spray NASBOTH BID PRN 05/04/20 [History] metFORMIN [Glucophage] 500 mg PO BID 05/04/20 [History] ALPRAZolam [Xanax] 0.25 mg PO Q8H PRN 05/11/20 [History] Ascorbic Acid [Vitamin C] 500 mg PO DAILY 05/11/20 [History] Carboxymethylcellulose Sodium [Artificial Tears] 1 drop OP BID PRN 05/11/20 [History] Lactobacillus Acidophilus [Acidophilus Lactobacilli] 1 cap PO DAILY PRN 05/11/20 [History] Sodium Chloride/Aloe Vera [[place] Saline Nasal Gel [place]] 2 sprays NS Q2H PRN 05/11/20 [History] levonorgestreL [Mirena] 1 each IY ASDIRECTED 05/11/20 [History] Past Medical History HEENT History: Reports: Impaired Vision Other HEENT History: myopia of both eyes. astigmatism of both eyes Cardiovascular History: Reports: High Cholesterol Gastrointestinal History: Reports: Cholelithiasis [employer]GER History: Reports: Psychiatric History: Reports: Anxiety Endocrine/Metabolic History: Reports: Diabetes, Type II Hematologic History: Reports: Iron Deficiency - Past Surgical History GI Surgical History: Reports: Cholecystectomy Female Surgical History: Reports: Section, Other (See Below) Other Female Surgeries/Procedures: labroscopy for endometriosis Musculoskeletal Surgical History: Reports: Shoulder Surgery Social & Family History - Family History Family Medical History: No Pertinent Family History - Caffeine Use Caffeine Use: Reports: Coffee, Tea Caffeine Use Comment: did not ask ED ROS GENERAL - Review of Systems Review Of Systems: See Below Constitutional: Reports: Fever, Chills, Malaise, Weakness HEENT: Reports: No Symptoms Respiratory: Denies: Shortness of Breath, Wheezing, Cough Cardiovascular: Reports: Lightheadedness Endocrine: Reports: Fatigue GI/Abdominal: Reports: No Symptoms : Reports: No Symptoms Musculoskeletal: Reports: Muscle Pain, Muscle Stiffness Skin: Reports: No Symptoms Neurological: Reports: Headache Psychiatric: Reports: Agitation ED EXAM, GENERAL - Physical Exam Exam: See Below Free Text/Narrative:: Alert, oriented with overall general malaise and slow response. She is accompanied by her who states she is slowly getting worse. HEENT is negative to discharge nor deformity. Mildly tacky appearing oral membranes. Neck is soft supple with no lymphadenopathy. There is mild tenderness to the deltoid muscle of the right humerus region where she received the vaccination yesterday. There is no erythema no significant inflammation. Thorax is clear throughout with no wheezes no crackles. Cardiac mildly tachycardic S1 is 2 I do not appreciate murmur. No flank pain no abdominal pain No deficits to the extremities with generalized weakness acknowledged. Course - Vital Signs Last Recorded V/S: Last Vital Signs Temp 97.2 F 10/05/20 14:30 Pulse 67 10/05/20 14:30 Resp 16 10/05/20 14:30 BP 127/83 10/05/20 14:30 Pulse Ox 100 10/05/20 14:30 - Orders/Labs/Meds Orders: Active Orders 24 hr Category Date Time Status Peripheral IV Care [RC] . DIRECTED Care 10/05/20 12:45 Active Sodium Chloride 0.9% [Saline Flush] Med 10/05/20 12:44 Active 10 ml FLUSH Q8HR PRN Peripheral IV Insertion Adult [OM.PC] Stat Oth 10/05/20 12:45 Ordered Medication Orders Sodium Chloride (Sodium Chloride 0.9% 10 Ml Syringe) 10 ml FLUSH Q8HR PRN PRN Reason: keep vein open Labs: Laboratory Tests 10/05/20 10/05/20 10/05/20 Range/Units 13:05 13:21 13:21 WBC 6.64 (5.00-10.00) 10^3/uL RBC 5.45 (3.80-5.50) 10^6/uL Hgb 15.6 (12.0-16.0) g/dL Hct 48.8 H (37.0-47.0) % MCV 89.5 D (82.0-92.0) fL MCH 28.6 (27.0-31.0) pg MCHC 32.0 (32.0-36.0) g/dL RDW 13.0 (11.5-14.5) % Plt Count 229 (150-400) 10^3/uL MPV 10.7 H (7.4-10.4) fL Immature Gran % (Auto) 0.2 (0.0-5.0) % Neut % (Auto) 61.7 (50.0-70.0) % Lymph % (Auto) 28.3 (20.0-40.0) % [place] % (Auto) 8.4 H (2.0-8.0) % Eos % (Auto) 1.1 (1.0-3.0) % Baso % (Auto) 0.3 (0.0-1.0) % Neut # (Auto) 4.10 (2.50-7.00) 10^3/uL Lymph # (Auto) 1.88 (1.00-4.00) 10^3/uL [place] # (Auto) 0.56 (0.10-0.80) 10^3/uL Eos # (Auto) 0.07 L (0.10-0.30) 10^3/uL Baso # (Auto) 0.02 (0.00-0.10) 10^3/uL Immature Gran # (Auto) 0.01 (0.00-0.50) 10^3/uL Sodium 136 (136-145) mmol/L Potassium 4.2 (3.5-5.1) mmol/L Chloride 100 (98-107) mmol/L Carbon Dioxide 28.7 (21.0-32.0) mmol/L Anion Gap 11.5 (5-15) mmol/L BUN 10 (7-18) mg/dL Creatinine 0.59 (0.51-1.17) mg/dL Est Cr Clr Drug Dosing 99.60 mL/min Estimated GFR (MDRD) > 60 mL/min Glucose 282 H (70-140) mg/dL Calcium 10.5 H (8.7-10.3) mg/dL Total Bilirubin 0.1 L (0.2-1.0) mg/dL AST 25 (15-37) U/L ALT 50 (14-63) U/L Alkaline Phosphatase 108 (46-116) U/L Total Protein 7.6 (6.4-8.2) g/dL Albumin 3.64 (3.40-5.00) g/dL Specimen Type Urincc Urine Color Yellow (YELLOW) Urine Appearance Clear (CLEAR) Urine pH 6.5 (5.0-9.0) Ur Specific [place] 1.015 (1.005-1.030) Urine Protein Negative (NEGATIVE) mg/dL Urine Glucose (UA) >=1000 H (NEGATIVE) mg/dL Urine Ketones Negative (NEGATIVE) mg/dL Urine Occult Blood Negative (NEGATIVE) Urine Nitrite Negative (NEGATIVE) Urine Bilirubin Negative (NEGATIVE) Urine Urobilinogen 0.2 (0.2-1.0) E.U./dL Ur Leukocyte Esterase Negative (NEGATIVE) Meds: Medications Generic Name Dose Route Start Last Admin Trade Name Freq PRN Reason Stop Dose Admin Sodium Chloride 10 ml 10/05/20 12:44 Sodium Chloride 0.9% 10 Ml Syringe FLUSH Q8HR PRN keep vein open Discontinued Medications Generic Name Dose Route Start Last Admin Trade Name Freq PRN Reason Stop Dose Admin Sodium Chloride 1,000 mls @ 999 mls/hr 10/05/20 12:45 10/05/20 13:45 Normal Saline IV 10/05/20 13:45 999 mls/hr .BOLUS ONE Administration - Re-Assessments/Exams Free Text/Narrative Re-Assessment/Exam: 10/05/20 15:40 Fully improving with the administration of a liter of IV fluid. States she is feeling significantly better at the time of discharge. Encouraged to maintain fluid hydration and that when she receives her second immunization in 3 weeks to make sure she is well-hydrated prior to the appointment. Departure - Departure Time of Disposition: 15:33 Disposition: Home, Self-Care 01 Condition: Good Clinical Impression: Hyperglycemia due to type 2 diabetes mellitus, Immunization reaction, Glucose found in urine on examination - Discharge Information *PRESCRIPTION DRUG MONITORING PROGRAM REVIEWED*: Not Applicable *COPY OF PRESCRIPTION DRUG MONITORING REPORT IN PATIENT CRISTINA: Not Applicable Referrals: Rodrigo Palma, OTOLARYNGOLOGY REP [Primary Care Provider] - Forms: ED Department Discharge Additional Instructions: You need to go home and rest. Make sure you have adequate fluid intake. Take all your medications as directed. Decrease your sugars and carbohydrate intake as your blood sugar is elevated as well as extreme glucose in your urine. Follow through with your appointment with Rodrigo on Saturday for reevaluation of your diabetes and its treatment. Make sure that you get your second Covid immunization in 21 days if it was Pfi zer mRNA. Follow-up at your clinic as scheduled or return to the emergency department if significant reaction occurs or recurs. Sepsis Event Note (ED) - Focused Exam Vital Signs: Vital Signs Temp Pulse Resp BP Pulse Ox 10/05/20 14:30 97.2 F 67 16 127/83 100 10/05/20 13:45 97.2 F 78 16 121/74 97 10/05/20 12:50 97.0 F 85 16 139/101 H 97 - Problem List & Annotations (1) Glucose found in urine on examination SNOMED Code(s): 84899705 Code(s): R81 - GLYCOSURIA Status: Acute Priority: High Current Visit: Yes (2) Hyperglycemia due to type 2 diabetes mellitus SNOMED Code(s): 834379276758702, 126441746082049 Code(s): E11.65 - TYPE 2 DIABETES MELLITUS WITH HYPERGLYCEMIA Status: Acute Priority: High Current Visit: Yes Qualifiers: Diabetes mellitus buttermaker continuous churn insulin use: without buttermaker continuous churn use Qualified Code(s): E11.65 - Type 2 diabetes mellitus with hyperglycemia (3) Immunization reaction SNOMED Code(s): 712024940 Code(s): T50.Z95A - ADVERSE EFFECT OF VACCINES AND BIOLOGICAL SUBSTANCES, INIT Status: Acute Priority: High Current Visit: Yes - Problem List Review Problem List Initiated/Reviewed/Updated: Yes - My Orders Last 24 Hours: My Active Orders 10/05/20 12:44 Sodium Chloride 0.9% [Saline Flush] 10 ml FLUSH Q8HR PRN 10/05/20 12:45 Peripheral IV Care [RC] . DIRECTED Peripheral IV Insertion Adult [OM.PC] Stat - Assessment/Plan Last 24 Hours: My Active Orders 10/05/20 12:44 Sodium Chloride 0.9% [Saline Flush] 10 ml FLUSH Q8HR PRN 10/05/20 12:45 Peripheral IV Care [RC] . DIRECTED Peripheral IV Insertion Adult [OM.PC] Stat Plan: You need to go home and rest. Make sure you have adequate fluid intake. Take all your medications as directed. Decrease your sugars and carbohydrate intake as your blood sugar is elevated as well as extreme glucose in your urine. Follow through with your appointment with Rodrigo on Saturday for reevaluation of your diabetes and its treatment. Make sure that you get your second Covid immunization in 21 days if it was Pfizer mRNA. Follow-up at your clinic as scheduled or return to the emergency department if significant reaction occurs or recurs.
[2020-10-05] MEDS ORDERED: Sodium Chloride 0.9% 10 ML Syringe FLUSH PRN (12:44)
[2020-10-05] MEDS ORDERED: Sodium Chloride 0.9% 1,000 ML IV ONE (12:45)
[2020-10-05 14:31] LABS: ANION GAP 11.5 mmol/L (5-15); CHLORIDE,CL 100 mmol/L (98-107); SODIUM,NA 136 mmol/L (136-145)
[2020-10-05 14:32] VITALS: BP 127/83; PULSE 67
== END 2020-10-05 15:40 | disposition home or self-care (01) ==
LOC: KA.ED 12:32
DX: E11.65 Type 2 diabetes mellitus with hyperglycemia (principal); T50.B95A Adverse effect of other viral vaccines, initial encounter; R81 Glycosuria; E78.00 Pure hypercholesterolemia, unspecified; Z79.84 Long term (current) use of oral hypoglycemic drugs; Z79.899 Other long term (current) drug therapy; Z91.040 Latex allergy status; Z88.6 Allergy status to analgesic agent; Z88.1 Allergy status to other antibiotic agents; Z88.8 Allergy status to other drugs, medicaments and biological substances
CPT/HCPCS: 36415; 80053; 81003; 85025; 99283; 99284; J7030

== ENCOUNTER 2020-10-06 13:23 | Emergency (ER) | payer BC ==
[2020-10-06] MEDS ORDERED: Sodium Chloride 0.9% 10 ML Syringe FLUSH PRN (13:24)
--- NOTE | 2020-10-06 13:37 | EDM.PDOC ---
ED HPI GENERAL MEDICAL PROBLEM - General Chief Complaint: Neurological Problem Stated Complaint: unresponsive Time Seen by Provider: 10/06/20 13:23 Source of Information: Reports: EMS, Family, Provider History Limitations: Reports: Altered Mental Status - History of Present Illness INITIAL COMMENTS - FREE TEXT/NARRATIVE: Roxi, 50-year-old female, is brought by ambulance from [place] with a [facility] ambulance service intercept. 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 She was somewhat vague but it led to questionable pain and an EKG was performed showing a sinus rhythm with questionable infarct pattern. At that time they decided to add in discussion that she would need further care and Daria wanted her transported by ambulance secondary of her poorly controlled diabetes history and the events that had been occurring. She was a patient in the emergency department yesterday seen by myself with no significant findings in all of the tests that were run as she was in non- appropriate neurologic state but was responsive the entire episode yesterday. Today Daria states that she discussed the potential severity of a diabetic with c ontrolled issues of her blood sugar that the symptoms are not always as typical for cardiac involvement and highly suggested emergency department by ambulance. She was somewhat hesitant wanted her to transport to which Daria then stated that she would need to be AGAINST MEDICAL ADVICE if she was not willing to seek the services or being offered. She then acknowledged ambulance but then took another step downward in her responsiveness inappropriateness. It was noted she was hypertensive with blood sugars in the 160s 70s and no other complaints or illness. Onset: Today, Sudden Onset Date: 10/06/20 Onset Time: 12:00 Duration: Minutes: Location: Reports: Head, Neck, Chest, Upper Extremity, Left Quality: Reports: Ache, Burning, Pressure Severity: Severe Improves with: Reports: None Worsens with: Reports: None Context: Reports: Activity Associated Symptoms: Reports: No Other Symptoms Treatments INSULATION BLOWER: Reports: Oxygen - Related Data Allergies Allergy/AdvReac Type Severity Reaction Status Date / Time diphenhydramine Allergy Hives Verified 10/06/20 14:00 [From Benadryl] latex Allergy Blisters Verified 10/06/20 14:00 lavender (Lavandula Allergy Blisters Verified 10/06/20 14:00 angustifolia) Iuclyml-Meu-Nbf Reductase Allergy Cannot Verified 10/06/20 14:00 Inhibitor Remember sulfamethoxazole Allergy Abdominal Verified 10/06/20 14:00 [From Bactrim] Pain Home Meds: Home Meds Escitalopram [Lexapro] 10 mg PO DAILY 04/02/17 [History] Acetaminophen [Tylenol] 650 mg PO Q4H PRN #60 cup 04/11/17 [Rx] Cetirizine [ZyrTEC] 10 mg PO DAILY 05/04/20 [History] Dapagliflozin Propanediol [Farxiga] 5 mg PO DAILY 05/04/20 [History] Fluticasone Propionate [Flonase Allergy Relief] 1 spray NASBOTH BID PRN 05/04/20 [History] metFORMIN [Glucophage] 500 mg PO BID 05/04/20 [History] ALPRAZolam [Xanax] 0.25 mg PO Q8H PRN 05/11/20 [History] Ascorbic Acid [Vitamin C] 500 mg PO DAILY 05/11/20 [History] Carboxymethylcellulose Sodium [Artificial Tears] 1 drop OP BID PRN 05/11/20 [History] Lactobacillus Acidophilus [Acidophilus Lactobacilli] 1 cap PO DAILY PRN 05/11/20 [History] Sodium Chloride/Aloe Vera [Eagle Saline Nasal Gel [place]] 2 sprays NS Q2H PRN 05/11/20 [History] levonorgestreL [Mirena] 1 each IY ASDIRECTED 05/11/20 [History] Past Medical History HEENT History: Reports: Impaired Vision Other HEENT History: myopia of both eyes. 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[employer] GENERAL History: Reports: Psychiatric History: Reports: Anxiety Endocrine/Metabolic History: Reports: Diabetes, Type II Hematologic History: Reports: Iron Deficiency - Past Surgical History GI Surgical History: Reports: Cholecystectomy Female Surgical History: Reports: Section, Other (See Below) Other Female Surgeries/Procedures: labroscopy for endometriosis Musculoskeletal Surgical History: Reports: Shoulder Surgery Social & Family History - Family History Family Medical History: No Pertinent Family History - Caffeine Use Caffeine Use: Reports: Coffee Caffeine Use Comment: did not ask ED ROS GENERAL - Review of Systems Review Of Systems: Unable To Obtain (And was given per provider report at time of transfer in HPI otherwise she provides no input) Reason Not Obtained: unresponsive ED EXAM, GENERAL - Physical Exam Exam: See Below Free Text/Narrative:: 50-year-old female who is unresponsive and communicative perception responding to position as well as painful stimuli. HEENT shows tremoring of the eyelids with her eyes looking about the room with no true focus. Pupils are equal they react to light. They wonder about with no focus, continued twitching of the upper eyelids noted. There is no deformity or drainage noted. Limited nondilated funduscopy is benign. Tympanic membranes and auditory canals are benign. Flash of my fingers to her face does induce a mild blinking sensation. Neck is soft supple no rigidity. No JVD nor carotid bruit is appreciated. Thorax is clear throughout with no wheezes nor crackles but very poor inspiratory aspect which is noted on her chest x-ray. Cardiac is S1 is 2 I do not appreciate murmur nor any ectopic beats. Abdomen is rotund soft bowel sounds are present no tenderness to palpation no organomegaly is appreciated. She does not response with any evidence of pain. Lower extremities are free of edema she has no evidence of any injury. Female genitalia are benign when Zamora catheter was placed. With motion and activity in the room as well as transport to the CT scanner there were times when moving from cart to table table to cart she would "reach with her arm as she was appreciating the direction she was being moved or slid in the transferring for the testing. Nursing staff said she did respond to the insertion of the Zamora catheter, no outburst or withdrawal but did since catheter placement by her activity. After return from scan and returned to the room she is becoming more arousable and speaking in some direct questioning. #1 Interpretation EKG Date: 10/06/20 Time: 13:28 Rhythm: NSR Rate (Beats/Min): 70 [place]: Normal P-Wave: Present QRS: Normal ST-T: Normal QT: Normal Comparison: No Change (cervantes lili today) Course - Vital Signs Last Recorded V/S: Last Vital Signs Temp 97.8 F 10/06/20 13:53 Pulse 82 10/06/20 15:46 Resp 18 10/06/20 15:46 BP 129/84 10/06/20 15:46 Pulse Ox 93 L 10/06/20 15:46 - Orders/Labs/Meds Orders: Active Orders 24 hr Category Date Time Status Blood Glucose Check, Bedside [RC] ONETIME Care 10/06/20 14:21 Active EKG Documentation Completion [RC] ASDIRECTED Care 10/06/20 13:25 Active Zamora Catheter Insertion [Insert Urinary Catheter] [OM. Care 10/06/20 13:30 Ordered PC] Q24H Peripheral IV Care [RC] . DIRECTED Care 10/06/20 13:25 Active Urinary Catheter Assessment [RC] ASDIRECTED Care 10/06/20 13:26 Active CULTURE BLOOD [BC] Stat Lab 10/06/20 14:00 Received CULTURE BLOOD [BC] Stat Lab 10/06/20 14:20 Received Sodium Chloride 0.9% [Saline Flush] Med 10/06/20 13:24 Active 10 ml FLUSH Q8HR PRN Blood Culture x2 Reflex Set [OM.PC] Stat Oth 10/06/20 13:24 Ordered Peripheral IV Insertion Adult [OM.PC] Stat Oth 10/06/20 13:24 Ordered EKG 12 Lead [EK] Stat Ther 10/06/20 13:24 Ordered Medication Orders Sodium Chloride (Sodium Chloride 0.9% 10 Ml Syringe) 10 ml FLUSH Q8HR PRN PRN Reason: keep vein open Last Admin: 10/06/20 15:35 Dose: 10 ml Documented by: AIMEE Labs: Laboratory Tests 10/06/20 10/06/20 10/06/20 Range/Units 13:20 13:20 13:20 APTT (22.8-31.4) SEC D-Dimer, Quantitative < 100 (<400) ng/mL Sodium 137 (136-145) mmol/L Potassium 4.0 (3.5-5.1) mmol/L Chloride 100 (98-107) mmol/L Carbon Dioxide 27.0 (21.0-32.0) mmol/L Anion Gap 14.0 (5-15) mmol/L BUN 13 (7-18) mg/dL Creatinine 0.64 (0.51-1.17) mg/dL Est Cr Clr Drug Dosing 91.82 mL/min Estimated GFR (MDRD) > 60 mL/min Glucose 145 H (70-140) mg/dL POC Glucose (70-140) mg/dL Lactic Acid 1.5 (0.4-2.0) mmol/L Calcium 10.4 H (8.7-10.3) mg/dL Total Bilirubin 0.2 (0.2-1.0) mg/dL AST 25 (15-37) U/L ALT 51 (14-63) U/L Alkaline Phosphatase 110 (46-116) U/L Troponin I High Sens < 4.000 (0-51.000) pg/mL Total Protein 8.0 (6.4-8.2) g/dL Albumin 3.92 (3.40-5.00) g/dL Specimen Type Urine Color (YELLOW) Urine Appearance (CLEAR) Urine pH (5.0-9.0) Ur Specific [place] (1.005-1.030) Urine Protein (NEGATIVE) mg/dL Urine Glucose (UA) (NEGATIVE) mg/dL Urine Ketones (NEGATIVE) mg/dL Urine Occult Blood (NEGATIVE) Urine Nitrite (NEGATIVE) Urine Bilirubin (NEGATIVE) Urine Urobilinogen (0.2-1.0) E.U./dL Ur Leukocyte Esterase (NEGATIVE) Urine Opiates Screen (NEGATIVE) Ur Oxycodone Screen (NEGATIVE) Urine Methadone Screen (NEGATIVE) Ur Propoxyphene Screen (NEGATIVE) Ur Barbiturates Screen (NEGATIVE) Ur Tricyclics Screen (NEGATIVE) Ur Phencyclidine Scrn (NEGATIVE) Ur Amphetamine Screen (NEGATIVE) U Methamphetamines Scrn (NEGATIVE) U Benzodiazepines Scrn (NEGATIVE) U Cocaine Metab Screen (NEGATIVE) U Marijuana (THC) Screen (NEGATIVE) 10/06/20 10/06/20 10/06/20 Range/Units 13:20 13:50 13:50 APTT 22.9 (22.8-31.4) SEC D-Dimer, Quantitative (<400) ng/mL Sodium (136-145) mmol/L Potassium (3.5-5.1) mmol/L Chloride (98-107) mmol/L Carbon Dioxide (21.0-32.0) mmol/L Anion Gap (5-15) mmol/L BUN (7-18) mg/dL Creatinine (0.51-1.17) mg/dL Est Cr Clr Drug Dosing mL/min Estimated GFR (MDRD) mL/min Glucose (70-140) mg/dL POC Glucose (70-140) mg/dL Lactic Acid (0.4-2.0) mmol/L Calcium (8.7-10.3) mg/dL Total Bilirubin (0.2-1.0) mg/dL AST (15-37) U/L ALT (14-63) U/L Alkaline Phosphatase (46-116) U/L Troponin I High Sens (0-51.000) pg/mL Total Protein (6.4-8.2) g/dL Albumin (3.40-5.00) g/dL Specimen Type Urincath Urine Color Yellow (YELLOW) Urine Appearance Clear (CLEAR) Urine pH 5.5 (5.0-9.0) Ur Specific [place] 1.020 (1.005-1.030) Urine Protein Negative (NEGATIVE) mg/dL Urine Glucose (UA) >=1000 H (NEGATIVE) mg/dL Urine Ketones Trace H (NEGATIVE) mg/dL Urine Occult Blood Negative (NEGATIVE) Urine Nitrite Negative (NEGATIVE) Urine Bilirubin Negative (NEGATIVE) Urine Urobilinogen 0.2 (0.2-1.0) E.U./dL Ur Leukocyte Esterase Negative (NEGATIVE) Urine Opiates Screen Negative (NEGATIVE) Ur Oxycodone Screen Negative (NEGATIVE) Urine Methadone Screen Negative (NEGATIVE) Ur Propoxyphene Screen Negative (NEGATIVE) Ur Barbiturates Screen Negative (NEGATIVE) Ur Tricyclics Screen Negative (NEGATIVE) Ur Phencyclidine Scrn Negative (NEGATIVE) Ur Amphetamine Screen Negative (NEGATIVE) U Methamphetamines Scrn Negative (NEGATIVE) U Benzodiazepines Scrn Positive H (NEGATIVE) U Cocaine Metab Screen Negative (NEGATIVE) U Marijuana (THC) Screen Negative (NEGATIVE) 10/06/20 Range/Units 14:07 APTT (22.8-31.4) SEC D-Dimer, Quantitative (<400) ng/mL Sodium (136-145) mmol/L Potassium (3.5-5.1) mmol/L Chloride (98-107) mmol/L Carbon Dioxide (21.0-32.0) mmol/L Anion Gap (5-15) mmol/L BUN (7-18) mg/dL Creatinine (0.51-1.17) mg/dL Est Cr Clr Drug Dosing mL/min Estimated GFR (MDRD) mL/min Glucose (70-140) mg/dL POC Glucose 128 (70-140) mg/dL Lactic Acid (0.4-2.0) mmol/L Calcium (8.7-10.3) mg/dL Total Bilirubin (0.2-1.0) mg/dL AST (15-37) U/L ALT (14-63) U/L Alkaline Phosphatase (46-116) U/L Troponin I High Sens (0-51.000) pg/mL Total Protein (6.4-8.2) g/dL Albumin (3.40-5.00) g/dL Specimen Type Urine Color (YELLOW) Urine Appearance (CLEAR) Urine pH (5.0-9.0) Ur Specific [place] (1.005-1.030) Urine Protein (NEGATIVE) mg/dL Urine Glucose (UA) (NEGATIVE) mg/dL Urine Ketones (NEGATIVE) mg/dL Urine Occult Blood (NEGATIVE) Urine Nitrite (NEGATIVE) Urine Bilirubin (NEGATIVE) Urine Urobilinogen (0.2-1.0) E.U./dL Ur Leukocyte Esterase (NEGATIVE) Urine Opiates Screen (NEGATIVE) Ur Oxycodone Screen (NEGATIVE) Urine Methadone Screen (NEGATIVE) Ur Propoxyphene Screen (NEGATIVE) Ur Barbiturates Screen (NEGATIVE) Ur Tricyclics Screen (NEGATIVE) Ur Phencyclidine Scrn (NEGATIVE) Ur Amphetamine Screen (NEGATIVE) U Methamphetamines Scrn (NEGATIVE) U Benzodiazepines Scrn (NEGATIVE) U Cocaine Metab Screen (NEGATIVE) U Marijuana (THC) Screen (NEGATIVE) Meds: Medications Generic Name Dose Route Start Last Admin Trade Name Freq PRN Reason Stop Dose Admin Sodium Chloride 10 ml 10/06/20 13:24 10/06/20 15:35 Sodium Chloride 0.9% 10 Ml Syringe FLUSH 10 ml Q8HR PRN Administration keep vein open Discontinued Medications Generic Name Dose Route Start Last Admin Trade Name Freq PRN Reason Stop Dose Admin Lorazepam 2 mg 10/06/20 15:16 10/06/20 15:29 Lorazepam 2 Mg/Ml Sdv IVPUSH 10/06/20 15:17 2 mg ONETIME ONE Administration - Re-Assessments/Exams Free Text/Narrative Re-Assessment/Exam: 10/06/20 14:15 At this time, Roxi she is awake and appropriately conversing with me. There is amnesia. During her altered sensorium event that she does remember texting her which was at 11:00 regarding dental appointments they had this the family today which is correct. She does not remember chest pain arm pain numbness tingling as was described by the provider Daria Minor to me at the time of the transfer initiation. She does remember not feeling well and that she had a typical evening after lainey hager discharged from the emergency department yesterday, and other than not feeling well which she is very nonspecific time does not remember any issues that occurred at work. She does remember the staff that was working, but denies speaking with the nurse about the numbness tingling in her left arm. She becomes somewhat emotional when I am asking questions trying to pinpoint the aspects of what occurred or did not occur in her memory process. Free Text/Narrative Re-Assessment/Exam: 10/06/20 15:34 With changes in neurologic status [facility] was contacted with Dr. Denny kelley as soon as bed space is arranged. 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 Qualified Code(s): E11.65 - Type 2 diabetes mellitus with hyperglycemia - Discharge Information *PRESCRIPTION DRUG MONITORING PROGRAM REVIEWED*: Not Applicable *COPY OF PRESCRIPTION DRUG MONITORING REPORT IN PATIENT CRISTINA: Not Applicable Referrals: Rodrigo Palma, SITE CONTROLLER [Primary Care Provider] - Forms: ED Department Discharge, Interfacility Transfer [facility] Sepsis Event Note (ED) - Focused Exam Vital Signs: Vital Signs Temp Pulse Resp BP Pulse Ox 10/06/20 15:46 82 18 129/84 93 L 10/06/20 15:30 76 154/93 H 94 L 10/06/20 15:15 77 15 156/93 H 96 10/06/20 15:00 74 14 159/95 H 96 10/06/20 14:45 73 12 159/93 H 98 10/06/20 14:30 69 16 146/97 H 99 10/06/20 14:15 73 12 171/100 H 98 10/06/20 14:00 71 11 L 164/89 H 100 10/06/20 13:53 97.8 F 63 14 183/101 H 98 10/06/20 13:45 73 15 163/93 H 100 10/06/20 13:30 72 13 155/90 H 99 ED Communication - ED Communication Date/Time Date: 10/06/20 Time Called: 14:50 - Discussed Case With (1) Discussed Case With (1): Admitting Provider Person/s Notified (1): Dr Okeefe - Problem List & Annotations (1) Altered sensorium SNOMED Code(s): 2830183 Code(s): R40.4 - TRANSIENT ALTERATION OF AWARENESS Status: Acute Priority: High Current Visit: Yes - Problem List Review Problem List Initiated/Reviewed/Updated: Yes - My Orders Last 24 Hours: My Active Orders 10/06/20 13:24 Sodium Chloride 0.9% [Saline Flush] 10 ml FLUSH Q8HR PRN Blood Culture x2 Reflex Set [OM.PC] Stat Peripheral IV Insertion Adult [OM.PC] Stat EKG 12 Lead [EK] Stat 10/06/20 13:25 EKG Documentation Completion [RC] ASDIRECTED Peripheral IV Care [RC] . DIRECTED 10/06/20 13:26 Urinary Catheter Assessment [RC] ASDIRECTED 10/06/20 13:30 Zamora Catheter Insertion [Insert Urinary Catheter] [OM.PC] Q24H 10/06/20 14:00 CULTURE BLOOD [BC] Stat 10/06/20 14:20 CULTURE BLOOD [BC] Stat 10/06/20 14:21 Blood Glucose Check, Bedside [RC] ONETIME - Assessment/Plan Last 24 Hours: My Active Orders 10/06/20 13:24 Sodium Chloride 0.9% [Saline Flush] 10 ml FLUSH Q8HR PRN Blood Culture x2 Reflex Set [OM.PC] Stat Peripheral IV Insertion Adult [OM.PC] Stat EKG 12 Lead [EK] Stat 10/06/20 13:25 EKG Documentation Completion [RC] ASDIRECTED Peripheral IV Care [RC] . DIRECTED 10/06/20 13:26 Urinary Catheter Assessment [RC] ASDIRECTED 10/06/20 13:30 Zamora Catheter Insertion [Insert Urinary Catheter] [OM.PC] Q24H 10/06/20 14:00 CULTURE BLOOD [BC] Stat 10/06/20 14:20 CULTURE BLOOD [BC] Stat 10/06/20 14:21 Blood Glucose Check, Bedside [RC] ONETIME
[2020-10-06 14:03] LABS: CHLORIDE,CL 100 mmol/L (98-107); SODIUM,NA 137 mmol/L (136-145)
--- NOTE | 2020-10-06 14:11 | CT ---
[id number] CT/CT Head WO IV EXAM: CT Head WO IV CLINICAL DATA: UNRESPONSIVE COMPARISON STUDY: None FINDINGS: No intracranial hemorrhage, extra-axial fluid collection, mass, or acute ischemia. No hydrocephalus. Calvarium intact. Paranasal sinuses and mastoid air cells are clear. IMPRESSION: Normal examination of the brain. Mark Negrete MD 10/06/20 0712 Thank you for allowing us to participate in the care of your patient.
[2020-10-06 14:30] LABS: BARBITURATE SCREEN,URINE NEGATIVE (NEGATIVE); BENZODIAZEPINES SCREEN,URINE POSITIVE (NEGATIVE); TCA SCREEN,URINE NEGATIVE (NEGATIVE); THC SCREEN,URINE 50 NG/ML NEGATIVE (NEGATIVE)
[2020-10-06] MEDS ORDERED: LORazepam 2 MG/ML SDV IVPUSH ONE (15:16)
--- NOTE | 2020-10-06 15:22 | CR ---
[id number] RAD/RAD Chest PA or AP 1V EXAM: RAD Chest PA or AP 1V INDICATION: UNRESPONSIVE COMPARISON: 2011. DISCUSSION/IMPRESSION: Cardiomediastinal silhouette is normal in size and contour. Low lung volumes, otherwise lungs are unremarkable. No pneumothorax or pleural effusion. Mark Negrete MD 10/06/20 [id number] Thank you for allowing us to participate in the care of your patient.
[2020-10-06 15:47] VITALS: BP 129/84; PULSE 82
== END 2020-10-06 16:05 ==
LOC: KA.ED 13:23
DX: E11.65 Type 2 diabetes mellitus with hyperglycemia (principal); R41.82 Altered mental status, unspecified; R81 Glycosuria; Z88.6 Allergy status to analgesic agent; Z91.040 Latex allergy status; Z91.048 Other nonmedicinal substance allergy status; Z88.8 Allergy status to other drugs, medicaments and biological substances; Z88.2 Allergy status to sulfonamides; Z79.84 Long term (current) use of oral hypoglycemic drugs; Z79.899 Other long term (current) drug therapy
CPT/HCPCS: 36415; 51702; 70450; 71045; 80053; 80305-QW; 81003; 82947; 83605; 84484; 85379; 85730; 87040; 93005; 96374; 99284; 99285-25; J2060

== ENCOUNTER 2021-01-10 09:11 | Emergency (ER) | payer BC ==
--- NOTE | 2021-01-10 09:39 | EDM.PDOC ---
ED HPI GENERAL MEDICAL PROBLEM - General Stated Complaint: STROKE-LIKE SYMPTOMS Time Seen by Provider: 01/10/21 09:17 Source of Information: Reports: Patient, EMS History Limitations: Reports: No Limitations - History of Present Illness INITIAL COMMENTS - FREE TEXT/NARRATIVE: Patient presents via ambulance from [facility] with report of slurred speech, right facial droop, right extremity weakness at 8:20 this morning. 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 She has a headache behind her right eye. Patient says she is now feeling better but still has a headache. She still appears a little "groggy". Glucose was 193 per EMS. Patient says she is taking all of her medications as directed. She also says she had an episode very similar to this shortly after her Covid (pfizer) vaccination. It was deemed a "reaction" and she hasn't received a second dose. I called Lenora Galvez, the provider at the [facility], for more details since she saw the patient personally when she came in to work. Lenora tells me the patient walked in okay but appeared tired at 8:22 this morning. She walked over to the coffee machine and then suddenly stopped, head turned up and to the right, staring. Her right leg became weak and she started walking/leaning to the right. She was very unsteady and Lenora assisted her. Patient's speech karen me slow and slurred and confused. She also noticed a facial droop on the right. She says this was 8:25 AM. Lenora reviewed chart and says patient had Covid vaccine on 10/04/20 and developed several neurological/stroke-like symptoms shortly afterward. She was initially hospitalized in [place] then transferred to [facility] on 10/06 and discharged on 10/07. Right Headache Pain Score (Numeric/FACES): 5 - Related Data Allergies Allergy/AdvReac Type Severity Reaction Status Date / Time diphenhydramine Allergy Hives Verified 01/10/21 09:22 [From Benadryl] latex Allergy Blisters Verified 01/10/21 09:22 lavender (Lavandula Allergy Blisters Verified 01/10/21 09:22 angustifolia) Bnjodry-EMZ-KrJ Reductase Allergy Cannot Verified 01/10/21 09:22 Inhibitor Remember [Kfhgvdl-Aik-Yrz Reductase Inhibitor] sulfamethoxazole Allergy Abdominal Verified 01/10/21 09:22 [From Bactrim] Pain Home Meds: Home Meds Escitalopram [Lexapro] 10 mg PO DAILY 04/02/17 [History] Acetaminophen [Tylenol] 650 mg PO Q4H PRN #60 cup 04/11/17 [Rx] Cetirizine [ZyrTEC] 10 mg PO DAILY 05/04/20 [History] Dapagliflozin Propanediol [Farxiga] 10 mg PO DAILY 05/04/20 [History] Fluticasone Propionate [Flonase Allergy Relief] 1 spray NASBOTH BID PRN 05/04/20 [History] metFORMIN [Glucophage] 500 mg PO BID 05/04/20 [History] ALPRAZolam [Xanax] 0.25 mg PO Q8H PRN 05/11/20 [History] Ascorbic Acid [Vitamin C] 500 mg PO DAILY 05/11/20 [History] Carboxymethylcellulose Sodium [Artificial Tears] 1 drop OP BID PRN 05/11/20 [History] Lactobacillus Acidophilus [Acidophilus Lactobacilli] 1 cap PO DAILY PRN 05/11/20 [History] Sodium Chloride/Aloe Vera [[place] Saline Nasal Gel [place]] 2 sprays NS Q2H PRN 05/11/20 [History] levonorgestreL [Mirena] 1 each IY ASDIRECTED 05/11/20 [History] Past Medical History HEENT History: Reports: Impaired Vision Other HEENT History: myopia of both eyes. 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: Psychiatric History: Reports: Anxiety Endocrine/Metabolic History: Reports: Diabetes, Type II Hematologic History: Reports: Iron Deficiency - Past Surgical History GI Surgical History: Reports: Cholecystectomy Female Surgical History: Reports: Section, Other (See Below) Other Female Surgeries/Procedures: labroscopy for endometriosis Musculoskeletal Surgical History: Reports: Shoulder Surgery Social & Family History - Family History Family Medical History: No Pertinent Family History - Caffeine Use Caffeine Use: Reports: Coffee, Tea Caffeine Use Comment: did not ask ED ROS GENERAL - Review of Systems Review Of Systems: See Below Constitutional: Reports: Malaise, Weakness, Fatigue. Denies: Fever, Chills HEENT: Denies: Ear Pain, Throat Pain, Vision Change Respiratory: Denies: Shortness of Breath, Cough Cardiovascular: Denies: Chest Pain, Syncope Endocrine: Reports: Fatigue, High Glucose GI/Abdominal: Denies: Abdominal Pain, Constipation, Diarrhea, Nausea, Vomiting : Denies: Dysuria, Flank Pain Musculoskeletal: Denies: Neck Pain, Shoulder Pain, Arm Pain, Back Pain, Hand Pain Skin: Denies: Cyanosis, Jaundice, Mottled, Pallor, Diaphoresis Neurological: Reports: Headache, Seizure (absence, after covid vaccine), Change in Speech (speaking slowly but clearly). Denies: Confusion, Dizziness, Syncope Psychiatric: Denies: Agitation, Anxiety, Confusion Hematologic/Lymphatic: Denies: Easy Bleeding ED EXAM, NEURO - Physical Exam Exam: See Below Exam Limited By: No Limitations General Appearance: Alert (awake and responsive but slow and methodical responses), WD/WN, No Apparent Distress Eye Exam: Bilateral Eye: EOMI, Normal Inspection, PERRL Ears: Normal External Exam, Normal Canal, Hearing Grossly Normal, Normal TMs Nose: Normal Inspection, No Blood Throat/Mouth: Normal Inspection, Normal Lips, Normal Voice, No Airway Compromise, Other (symmetric smile) Head Exam: Atraumatic, Normocephalic Neck: Normal Inspection, Supple, Non-Tender, Full Range of Motion Respiratory/Chest: No Respiratory Distress, Lungs Clear, Normal Breath Sounds, No Accessory Muscle Use, Chest Non-Tender Cardiovascular: Regular Rate, Rhythm, No Edema, No Murmur GI/Abdominal: Normal Bowel Sounds, Soft, Non-Tender, No Organomegaly, No Distention Neurological: Alert, Normal Dorsiflexion, CN II-XII Intact, Normal Plantar Flexion, No Motor/Sensory Deficits, Oriented x 3, Straight Leg Raise (L), Straight Leg Raise (R) Back Exam: Normal Inspection, Full Range of Motion. No: CVA Tenderness (L), CVA Tenderness (R) Extremities: Normal Inspection, Normal Range of Motion Psychiatric: Flat Affect (somewhat) Skin Exam: Warm, Dry, Intact, Normal Color, No Rash Course - Vital Signs Last Recorded V/S: Last Vital Signs Temp 97.6 F 01/10/21 09:25 Pulse 71 01/10/21 11:00 Resp 14 01/10/21 11:00 BP 146/89 H 01/10/21 11:00 Pulse Ox 96 01/10/21 11:00 - Orders/Labs/Meds Orders: Active Orders 24 hr Category Date Time Status NIH Stroke Scale [RC] ASDIRECTED Care 01/10/21 09:18 Ordered Labs: Laboratory Tests 01/10/21 01/10/21 01/10/21 Range/Units 09:33 09:33 09:33 WBC 6.64 (5.00-10.00) 10^3/uL RBC 5.66 H (3.80-5.50) 10^6/uL Hgb 16.1 H (12.0-16.0) g/dL Hct 50.8 H (37.0-47.0) % MCV 89.8 (82.0-92.0) fL MCH 28.4 (27.0-31.0) pg MCHC 31.7 L (32.0-36.0) g/dL RDW 13.4 (11.5-14.5) % Plt Count 259 (150-400) 10^3/uL MPV 9.9 (7.4-10.4) fL Immature Gran % (Auto) 0.3 (0.0-5.0) % Neut % (Auto) 58.5 (50.0-70.0) % Lymph % (Auto) 30.9 (20.0-40.0) % [place] % (Auto) 8.4 H (2.0-8.0) % Eos % (Auto) 1.4 (1.0-3.0) % Baso % (Auto) 0.5 (0.0-1.0) % Neut # (Auto) 3.89 (2.50-7.00) 10^3/uL Lymph # (Auto) 2.05 (1.00-4.00) 10^3/uL [place] # (Auto) 0.56 (0.10-0.80) 10^3/uL Eos # (Auto) 0.09 L (0.10-0.30) 10^3/uL Baso # (Auto) 0.03 (0.00-0.10) 10^3/uL Immature Gran # (Auto) 0.02 (0.00-0.50) 10^3/uL PT 21.3 H (9.2-11.2) SEC INR 2.1 H (0.9-1.1) APTT 30.2 (22.8-31.4) SEC Sodium Cancelled Potassium Cancelled Chloride Cancelled Carbon Dioxide Cancelled Anion Gap Cancelled BUN Cancelled Creatinine Cancelled Est Cr Clr Drug Dosing Cancelled Estimated GFR (MDRD) Cancelled Glucose Cancelled Calcium Cancelled Total Bilirubin (0.2-1.0) mg/dL AST (15-37) U/L ALT (14-63) U/L Alkaline Phosphatase (46-116) U/L Troponin I High Sens (0-51.000) pg/mL Total Protein (6.4-8.2) g/dL Albumin (3.40-5.00) g/dL Specimen Type Urine Color (YELLOW) Urine Appearance (CLEAR) Urine pH (5.0-9.0) Ur Specific [place] (1.005-1.030) Urine Protein (NEGATIVE) mg/dL Urine Glucose (UA) (NEGATIVE) mg/dL Urine Ketones (NEGATIVE) mg/dL Urine Occult Blood (NEGATIVE) Urine Nitrite (NEGATIVE) Urine Bilirubin (NEGATIVE) Urine Urobilinogen (0.2-1.0) E.U./dL Ur Leukocyte Esterase (NEGATIVE) Urine RBC (0-5) /HPF Urine WBC (0-5) /HPF Ur Epithelial Cells /LPF Urine Bacteria (NONE TO FEW) /HPF Urine Opiates Screen (NEGATIVE) Ur Oxycodone Screen (NEGATIVE) Urine Methadone Screen (NEGATIVE) Ur Propoxyphene Screen (NEGATIVE) Ur Barbiturates Screen (NEGATIVE) Ur Tricyclics Screen (NEGATIVE) Ur Phencyclidine Scrn (NEGATIVE) Ur Amphetamine Screen (NEGATIVE) U Methamphetamines Scrn (NEGATIVE) U Benzodiazepines Scrn (NEGATIVE) U Cocaine Metab Screen (NEGATIVE) U Marijuana (THC) Screen (NEGATIVE) 01/10/21 01/10/21 01/10/21 Range/Units 09:33 09:33 09:55 WBC (5.00-10.00) 10^3/uL RBC (3.80-5.50) 10^6/uL Hgb (12.0-16.0) g/dL Hct (37.0-47.0) % MCV (82.0-92.0) fL MCH (27.0-31.0) pg MCHC (32.0-36.0) g/dL RDW (11.5-14.5) % Plt Count (150-400) 10^3/uL MPV (7.4-10.4) fL Immature Gran % (Auto) (0.0-5.0) % Neut % (Auto) (50.0-70.0) % Lymph % (Auto) (20.0-40.0) % [place] % (Auto) (2.0-8.0) % Eos % (Auto) (1.0-3.0) % Baso % (Auto) (0.0-1.0) % Neut # (Auto) (2.50-7.00) 10^3/uL Lymph # (Auto) (1.00-4.00) 10^3/uL [place] # (Auto) (0.10-0.80) 10^3/uL Eos # (Auto) (0.10-0.30) 10^3/uL Baso # (Auto) (0.00-0.10) 10^3/uL Immature Gran # (Auto) (0.00-0.50) 10^3/uL PT (9.2-11.2) SEC INR (0.9-1.1) APTT (22.8-31.4) SEC Sodium 141 Potassium 4.3 Chloride 102 Carbon Dioxide 26.8 Anion Gap 16.5 H BUN 7 Creatinine 0.56 Est Cr Clr Drug Dosing 104.94 Estimated GFR (MDRD) > 60 Glucose 152 H Calcium 10.0 Total Bilirubin 0.3 (0.2-1.0) mg/dL AST 27 (15-37) U/L ALT 50 (14-63) U/L Alkaline Phosphatase 125 H (46-116) U/L Troponin I High Sens 3.700 (0-51.000) pg/mL Total Protein 8.3 H (6.4-8.2) g/dL Albumin 4.02 (3.40-5.00) g/dL Specimen Type Urinblad Urine Color Yellow (YELLOW) Urine Appearance Clear (CLEAR) Urine pH 7.0 (5.0-9.0) Ur Specific [place] 1.015 (1.005-1.030) Urine Protein Negative (NEGATIVE) mg/dL Urine Glucose (UA) >=1000 H (NEGATIVE) mg/dL Urine Ketones Trace H (NEGATIVE) mg/dL Urine Occult Blood Trace-lysed H (NEGATIVE) Urine Nitrite Negative (NEGATIVE) Urine Bilirubin Negative (NEGATIVE) Urine Urobilinogen 0.2 (0.2-1.0) E.U./dL Ur Leukocyte Esterase Negative (NEGATIVE) Urine RBC 0-5 (0-5) /HPF Urine WBC 0-5 (0-5) /HPF Ur Epithelial Cells Moderate H /LPF Urine Bacteria Rare (NONE TO FEW) /HPF Urine Opiates Screen (NEGATIVE) Ur Oxycodone Screen (NEGATIVE) Urine Methadone Screen (NEGATIVE) Ur Propoxyphene Screen (NEGATIVE) Ur Barbiturates Screen (NEGATIVE) Ur Tricyclics Screen (NEGATIVE) Ur Phencyclidine Scrn (NEGATIVE) Ur Amphetamine Screen (NEGATIVE) U Methamphetamines Scrn (NEGATIVE) U Benzodiazepines Scrn (NEGATIVE) U Cocaine Metab Screen (NEGATIVE) U Marijuana (THC) Screen (NEGATIVE) 01/10/21 01/10/21 Range/Units 10:08 11:20 WBC (5.00-10.00) 10^3/uL RBC (3.80-5.50) 10^6/uL Hgb (12.0-16.0) g/dL Hct (37.0-47.0) % MCV (82.0-92.0) fL MCH (27.0-31.0) pg MCHC (32.0-36.0) g/dL RDW (11.5-14.5) % Plt Count (150-400) 10^3/uL MPV (7.4-10.4) fL Immature Gran % (Auto) (0.0-5.0) % Neut % (Auto) (50.0-70.0) % Lymph % (Auto) (20.0-40.0) % [place] % (Auto) (2.0-8.0) % Eos % (Auto) (1.0-3.0) % Baso % (Auto) (0.0-1.0) % Neut # (Auto) (2.50-7.00) 10^3/uL Lymph # (Auto) (1.00-4.00) 10^3/uL [place] # (Auto) (0.10-0.80) 10^3/uL Eos # (Auto) (0.10-0.30) 10^3/uL Baso # (Auto) (0.00-0.10) 10^3/uL Immature Gran # (Auto) (0.00-0.50) 10^3/uL PT TNP (9.2-11.2) SEC INR 0.9 (0.9-1.1) APTT (22.8-31.4) SEC Sodium Potassium Chloride Carbon Dioxide Anion Gap BUN Creatinine Est Cr Clr Drug Dosing Estimated GFR (MDRD) Glucose Calcium Total Bilirubin (0.2-1.0) mg/dL AST (15-37) U/L ALT (14-63) U/L Alkaline Phosphatase (46-116) U/L Troponin I High Sens (0-51.000) pg/mL Total Protein (6.4-8.2) g/dL Albumin (3.40-5.00) g/dL Specimen Type Urine Color (YELLOW) Urine Appearance (CLEAR) Urine pH (5.0-9.0) Ur Specific [place] (1.005-1.030) Urine Protein (NEGATIVE) mg/dL Urine Glucose (UA) (NEGATIVE) mg/dL Urine Ketones (NEGATIVE) mg/dL Urine Occult Blood (NEGATIVE) Urine Nitrite (NEGATIVE) Urine Bilirubin (NEGATIVE) Urine Urobilinogen (0.2-1.0) E.U./dL Ur Leukocyte Esterase (NEGATIVE) Urine RBC (0-5) /HPF Urine WBC (0-5) /HPF Ur Epithelial Cells /LPF Urine Bacteria (NONE TO FEW) /HPF Urine Opiates Screen Negative (NEGATIVE) Ur Oxycodone Screen Negative (NEGATIVE) Urine Methadone Screen Negative (NEGATIVE) Ur Propoxyphene Screen Negative (NEGATIVE) Ur Barbiturates Screen Negative (NEGATIVE) Ur Tricyclics Screen Negative (NEGATIVE) Ur Phencyclidine Scrn Negative (NEGATIVE) Ur Amphetamine Screen Negative (NEGATIVE) U Methamphetamines Scrn Negative (NEGATIVE) U Benzodiazepines Scrn Negative (NEGATIVE) U Cocaine Metab Screen Negative (NEGATIVE) U Marijuana (THC) Screen Negative (NEGATIVE) - Re-Assessments/Exams Free Text/Narrative Re-Assessment/Exam: 01/10/21 09:[address] shows no acute intracranial findings. Discussed with patient. She is feeling better, headache is improving and she doesn't want anything for the headache. She is still speaking slowly and feels like she is having trouble saying what she wants to say. 01/10/21 10:01 When we got patient up for bathroom, I assessed Corie; she drifts backward as soon as she closes her eyes. This happens repeatedly. She is still struggling with slow speech and word finding. 01/10/21 11:14 I reassessed Romberg 5-10 minutes after the first one; it is normal. Patient is now speaking and conversing normally without difficulty or delay. We discussed findings and possible etiologies. I visited with Rodrigo Palma NP who has been her long-time PCP and knows her well. He was with her the day she received the first covid shot and confirmed she had a very remarkable and immediate reaction to the vaccine, but her exam didn't correlate with her presenting symptoms. She started cognitive therapy for awhile after that but patient says she was released about 3 weeks ago and told by the therapist that she should come back again if she had any more problems. This is the same thing again, patient says, so she will call and make an appointment with him today. We discussed observation but patient wants to go home as she is feeling fine now. Patient stable and normal appearing at discharge. 01/10/21 11:20 With the INR of 2.1 and patient isn't on warfarin, I rechecked it. Second result is 0.9 Departure - Departure Time of Disposition: 11:27 Disposition: Home, Self-Care 01 Condition: Good Clinical Impression: Headache around the eyes, Weakness - Discharge Information Referrals: Rodrigo Palma NP [Primary Care Provider] - Additional Instructions: Go home and get some rest. Call your therapist for evaluation and treatment again with him as we discussed. Follow up in a week or less with your PCP, either Rodrigo Palma or at [facility], your preference. If worsening, recheck sooner in clinic or ER as needed. Sepsis Event Note (ED) - Focused Exam Vital Signs: Vital Signs Temp Pulse Resp BP Pulse Ox 01/10/21 11:00 71 14 146/89 H 96 01/10/21 10:32 63 14 146/88 H 98 01/10/21 10:30 79 14 168/94 H 96 01/10/21 09:45 67 15 156/97 H 95 01/10/21 09:25 97.6 F 70 20 171/101 H 99 - My Orders Last 24 Hours: My Active Orders 01/10/21 09:18 NIH Stroke Scale [RC] ASDIRECTED - Assessment/Plan Last 24 Hours: My Active Orders 01/10/21 09:18 NIH Stroke Scale [RC] ASDIRECTED
--- NOTE | 2021-01-10 09:44 | CT ---
[id number] CT/CT Head Stroke Protocol EXAM: CT Head Stroke Protocol CLINICAL DATA: STROKE SYMPTOMS. COMPARISON STUDY: None FINDINGS: No intracranial hemorrhage, extra-axial fluid collection, mass, or acute ischemia. Soft tissues are unremarkable. Paranasal sinuses and mastoid air cells are clear. IMPRESSION: No acute intracranial findings. Jt Whelan DO 01/10/21 0943 Thank you for allowing us to participate in the care of your patient.
[2021-01-10 10:32] LABS: PTT,PARTIAL THROMBOPLSTIN TIME 30.2 SEC (22.8-31.4)
[2021-01-10 10:37] LABS: BARBITURATE SCREEN,URINE NEGATIVE (NEGATIVE); BENZODIAZEPINES SCREEN,URINE NEGATIVE (NEGATIVE); TCA SCREEN,URINE NEGATIVE (NEGATIVE); THC SCREEN,URINE 50 NG/ML NEGATIVE (NEGATIVE)
[2021-01-10 11:26] VITALS: BP 146/89; PULSE 71
[2021-01-10 11:34] LABS: ANION GAP 16.5 mmol/L (5-15); CHLORIDE,CL 102 mmol/L (98-107); SODIUM,NA 141 mmol/L (136-145)
== END 2021-01-10 11:35 | disposition home or self-care (01) ==
LOC: KA.ED 09:11
DX: R51.9 Headache, unspecified (principal); R53.1 Weakness; Z88.8 Allergy status to other drugs, medicaments and biological substances; Z91.040 Latex allergy status; Z88.2 Allergy status to sulfonamides; Z79.84 Long term (current) use of oral hypoglycemic drugs; Z79.899 Other long term (current) drug therapy; E11.9 Type 2 diabetes mellitus without complications
CPT/HCPCS: 36415; 70450; 80053; 80305-QW; 81001; 84484; 85025; 85610; 85730; 99284; 99285-25; Q3014

== ENCOUNTER 2021-07-19 09:05 | Emergency (ER) | payer BC ==
[~2021-07-19 09:05] MED LIST: Sodium Chloride 0.9% 10 ML Syringe FLUSH PRN
[2021-07-19 09:55] LABS: ANION GAP 16.3 mmol/L (5-15); CHLORIDE,CL 104 mmol/L (98-107); SODIUM,NA 139 mmol/L (136-145)
[2021-07-19 10:35] VITALS: BP 146/101; PULSE 91
== END 2021-07-19 11:05 | disposition home or self-care (01) ==
LOC: KA.ED 09:05
DX: G51.0 Bell's palsy (principal); E11.65 Type 2 diabetes mellitus with hyperglycemia; R81 Glycosuria; T38.0X5A Adverse effect of glucocorticoids and synthetic analogues, initial encounter; E11.9 Type 2 diabetes mellitus without complications; Z79.899 Other long term (current) drug therapy; Z79.84 Long term (current) use of oral hypoglycemic drugs; Z90.49 Acquired absence of other specified parts of digestive tract; Z88.8 Allergy status to other drugs, medicaments and biological substances; Z91.040 Latex allergy status; Z91.048 Other nonmedicinal substance allergy status; Z88.2 Allergy status to sulfonamides
CPT/HCPCS: 36415; 70450; 71045; 80053; 81003; 82947; 83605; 83880; 84484; 85025; 85379; 85730; 86140; 93010; 99284; 99285-25

== ENCOUNTER 2023-11-13 13:43 | Emergency (ER) | payer OTHER ==
[2023-11-13] MEDS ORDERED: Sodium Chloride 0.9% 10 ML Syringe FLUSH PRN ×2 (13:52→14:00)
[2023-11-13] MEDS: Sodium Chloride 0.9% 500 ML IV SCH (14:00)
[2023-11-13 14:06] LABS: BASOPHILS ABSOLUTE AUTO 0.03 10^3/uL (0.00-0.10); BASOPHILS PERCENT AUTO 0.3 % (0.0-1.0); EOSINOPHILS ABSOLUTE AUTO 0.06 10^3/uL (0.10-0.30); EOSINOPHILS PERCENT AUTO 0.7 % (1.0-3.0); HEMATOCRIT 46.8 % (37.0-47.0); HEMOGLOBIN 15.3 g/dL (12.0-16.0); IMMATURE GRAN ABSOLUTE AUTO 0.02 10^3/uL (0.00-0.50); IMMATURE GRAN PERCENT AUTO 0.2 % (0.0-5.0); LYMPHOCYTES ABSOLUTE AUTO 3.68 10^3/uL (1.00-4.00); LYMPHOCYTES PERCENT AUTO 42.5 % (20.0-40.0); MEAN CORPUSCULAR HEMOGLOBIN 28.1 pg (27.0-31.0); MEAN CORPUSCULAR HGB CONC 32.7 g/dL (32.0-36.0); MEAN PLATELET VOLUME 10.7 fL (7.4-10.4); MONOCYTES ABSOLUTE AUTO 0.68 10^3/uL (0.10-0.80); MONOCYTES PERCENT AUTO 7.9 % (2.0-8.0); NEUTROPHILS ABSOLUTE AUTO 4.18 10^3/uL (2.50-7.00); NEUTROPHILS PERCENT AUTO 48.4 % (50.0-70.0); PLATELET COUNT,PLT 246 10^3/uL (150-400); RED BLOOD CELL COUNT 5.44 10^6/uL (3.80-5.50); RED CELL DISTRIBUTION WIDTH 12.7 % (11.5-14.5); WHITE BLOOD CELL COUNT,WBC 8.65 10^3/uL (5.00-10.00)
[2023-11-13 14:19] LABS: ALANINE AMINOTRANSFERASE,ALT 83 U/L (14-63); ALBUMIN 3.92 g/dL (3.40-5.00); ALKALINE PHOSPHATASE 136 U/L (46-116); ANION GAP 13.5 mmol/L (5-15); ASPARTATE AMNIOTRANSFERASE,AST 64 U/L (15-37); BILIRUBIN TOTAL 0.4 mg/dL (0.2-1.0); BLOOD UREA NITROGEN,BUN 7 mg/dL (7-18); CALCIUM 10.6 mg/dL (8.7-10.3); CARBON DIOXIDE,CO2 27.5 mmol/L (21.0-32.0); CHLORIDE,CL 100 mmol/L (98-107); CREATININE 0.54 mg/dL (0.51-1.17); EST CRCL DRUG DOSING (CG) 105.24 mL/min; GLUCOSE RANDOM 154 mg/dL (70-140); PROTEIN TOTAL,TP 8.2 g/dL (6.4-8.2); SODIUM,NA 137 mmol/L (136-145)
[2023-11-13 14:20] LABS: ESTIMATED GFR 111 mL/min (>=60); INR 0.9 (0.9-1.1); PROTHROMBIN TIME 9.9 SEC (9.3-12.2); PTT,PARTIAL THROMBOPLSTIN TIME 23.2 SEC (23.3-34.9)
[2023-11-13] MEDS: Ketorolac 30 MG/ML SDV IVPUSH ONE (14:34)
[2023-11-13] MEDS: Prochlorperazine 10 MG in Sodium Chloride 0.9% 50 ML IV ONE (14:34)
[2023-11-13] MEDS: Magnesium Sulfate/Water 2 GM in Premix Bag 1 BAG IV ONE (14:39)
[2023-11-13] MEDS: Tenecteplase 50 MG Kit IVPUSH ONE (14:53)
[2023-11-13 16:28] VITALS: BP 136/91; PULSE 76
== END 2023-11-13 15:30 | disposition home or self-care (01) ==
LOC: KA.ED 13:50
DX: G43.509 Persistent migraine aura without cerebral infarction, not intractable, without status migrainosus (principal); R29.810 Facial weakness; R47.01 Aphasia; E11.9 Type 2 diabetes mellitus without complications; Z90.49 Acquired absence of other specified parts of digestive tract; Z79.84 Long term (current) use of oral hypoglycemic drugs; Z79.899 Other long term (current) drug therapy; Z88.2 Allergy status to sulfonamides; Z88.8 Allergy status to other drugs, medicaments and biological substances; Z91.040 Latex allergy status; Z91.048 Other nonmedicinal substance allergy status
CPT/HCPCS: 70450; 80053; 84484; 85025; 85610; 85730; 93010; 96365; 96368; 96375; 99284; 99285-25; J0780; J1885; J3475; J3490; J7040; Q3014